=== PATIENT | male | born 1960 | race Caucasian/White ===

== ENCOUNTER → 2020-06-30 10:49 | Outpatient (BNVA) | payer OTHER, SELFPAY | PROVIDERS: Visit Provider Nurse Practitioner | DX: E11.65 Type 2 diabetes mellitus with hyperglycemia (principal); Z79.4 Long term (current) use of insulin; E55.9 Vitamin D deficiency, unspecified; F10.10 Alcohol abuse, uncomplicated | CPT/HCPCS: 80053; 80061; 81000; 82043; 82306; 82607; 83036; 83735; 84443; 85025 ==

== ENCOUNTER → 2020-10-04 08:23 | Outpatient (BNVA) | payer OTHER, SELFPAY | PROVIDERS: PCP Nurse Practitioner; Visit Provider Nurse Practitioner | DX: E11.65 Type 2 diabetes mellitus with hyperglycemia (principal); Z79.4 Long term (current) use of insulin; E78.2 Mixed hyperlipidemia | CPT/HCPCS: 80053; 80061; 83036; 85025 ==

== ENCOUNTER 2020-11-15 14:11 | Outpatient (CLI) | payer OTHER, SELFPAY ==
--- NOTE | 2020-11-15 14:15 | USCV_ITS ---
Terrence Mayfield Age: 59 Gender: M : 1960 Exam Date: 11/15/2020 14:55 Ordering Phys: John Rouse Technologist: Eduardo Chino [place]am Location[place] [facility] [place] [facility] [place] Indication: DM Risk Factors: Previous Vascular Surgery: RIGHT LEFT BP: 147.0 / 71.00 BP: 146.0/ 76.00 0 0 Waveform Velocity (cm/s) Velocity (cm/s) Waveform Triphasic 67.4 Iliac Prox 112.9 Triphasic Triphasic 83.2 Iliac Mid 119.8 Triphasic Monophasic 97.3 Iliac Distal 92.0 Triphasic Monophasic 107.8 RECRUITMENT SPECIALIST 54.5 Triphasic Monophasic 102.5 SFA Prox 74.9 Biphasic Monophasic 33.4 SFA Mid 40.4 Monophasic N/A SFA Dist Monophasic 32.6 Monophasic 30.3 POP 73.8 Monophasic Monophasic 48.6 RIB CUTTER 30.3 Monophasic Monophasic 19.2 DPA 54.4 Biphasic 0.5 JOHN FINDINGS Within the right lower extremity there is no flow within the distal sfa, but flow is seen posterior to collateral. Within the left lower extremity there is a fem-pop bypass graft. The little shell tribe artery does appear top have flow. Monophasic and continuous Doppler waveforms in the popliteal and infrapopliteal vessels on the right side. Moderate to heavy diffuse plaques in the left iliac, femoral and popliteal arteries. The dorsalis pedis and posterior tibial artery blood pressures were greater than 220 on the left side. CONCLUSIONS 1. Features of total occlusion of the distal superficial femoral artery on the right side with collateral filling of the infrapopliteal vessels. Moderate to heavy plaques in the iliac, femoral and popliteal arteries. Resting JOHN of 0.5 on the right side 2. Moderate to heavy diffuse heterogeneous plaques in the left iliac, femoral and popliteal arteries. These arteries along with the infrapopliteal vessels were found to be patent 3. Patent femoral-popliteal bypass graft on the left side. Supranormal resting JOHN on the left side Dr Preston Taylor MD [facility] (Electronically Signed) Final Date: 17 November 2020 11:12 S
--- NOTE | 2020-11-15 15:44 | ECG_ITS ---
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
[2020-11-15 15:50] LABS: Eosinophils # 0.1 10^3/uL (0.0-0.8); Eosinophils % 3.1 %; Hematocrit 35.4 % (42.0-52.0); Hemoglobin 11.3 g/dL (11.7-16.6); Lymphocytes # 0.9 10^3/uL (0.8-4.8); Lymphocytes % 21.9 %; Mean Corpuscular HGB Conc 31.9 g/dL (30.0-36.0); Mean Corpuscular Volume 103.5 fl (80-94); Mean Platelet Volume 8.9 fL (7.4-10.4); Monocytes # 0.5 10^3/uL (0.2-0.9); Monocytes % 11.9 %; Neutrophils % 61.9 %; Nucleated Red Blood Cells % 0 %; Platelet Count 179 10^3/cmm (130-400); Red Blood Count 3.42 10^6/uL (4.1-5.3); Red Cell Distribution Width 14.3 % (12.1-15.1); White Blood Count 4.2 10^3/uL (4.0-10.0)
[2020-11-15 16:52] LABS: Anion Gap 16.7 (5-19); Blood Urea Nitrogen 14 mg/dL (8-23); Calcium 8.9 mg/dL (8.5-10.5); Carbon Dioxide 28 mmol/L (22-29); Chloride 99 mmol/L (98-107); Glomerular Filtration Rate 98.6 mL/min (90-130); Glucose 242 mg/dL (65-115); Osmolality Calculated 298 mOsm/kg (285-295); Potassium 3.7 mmol/L (3.5-5.1); Sodium 140 mmol/L (136-145)
== END 2020-11-15 14:12 | disposition home or self-care (01) ==
PROVIDERS: PCP Nurse Practitioner; Visit Provider Nurse Practitioner
DX: E11.65 Type 2 diabetes mellitus with hyperglycemia (principal); Z79.4 Long term (current) use of insulin; I73.9 Peripheral vascular disease, unspecified; M79.2 Neuralgia and neuritis, unspecified; E78.2 Mixed hyperlipidemia; K21.9 Gastro-esophageal reflux disease without esophagitis; R94.31 Abnormal electrocardiogram [ECG] [EKG]
CPT/HCPCS: 80048; 85025; 93005; 93925

== ENCOUNTER 2021-01-03 15:24 | Outpatient (CLI) | payer OTHER, SELFPAY ==
--- NOTE | 2021-01-03 15:45 | USCV_ITS ---
Tran Terrence Age: 60 Gender: M : 1960 Exam Date: 01/03/2021 15:57 Ordering Phys: John Rouse Technologist: TO [place]am [place] [facility] [place] Indication: SYNCOPE AND COLLAPSE Risk Factors: Previous Vascular Surgery: Right Brachial BP: / Left Brachial BP: / Right Left Velocity (cm/s) Spectral Plaque Velocity (cm/s) Spectral Plaque Syst/Diast Broadening Syst/Diast Broadening 111.40/22.10 Prox CCA 109.20/ 19.80 88.10/ 17.10 Mid CCA 102.50/ 26.50 67.70/ 16.40 Distal CCA 97.00 / 29.80 63.10/ 14.50 Prox ICA 61.90 / 23.00 71.60/ 19.70 Mid ICA 77.70 / 28.80 79.50/ 29.60 Distal ICA 86.90 / 30.90 197.30 ECA 170.90 0.81 ICA/CCA 0.76 Antegrade Vertebral Antegrade 53.20/ 7.90 cm/s 47.30/ 13.80 cm/s Tri Subclavian Tri 113.6 103.4 0 0 CONCLUSIONS Right ICA stenosis <50%. Moderate atheromatous plaque right carotid bulb/ICA. Left ICA stenosis <50%. Moderate atheromatous plaque left carotid bulb/ICA. Normal antegrade Doppler flow noted in the right vertebral artery. Normal antegrade Doppler flow noted in the left vertebral artery. Cheikh Saenz MD (Electronically Signed) Final Date: 04 January 2021 10:50 S
== END 2021-01-03 15:25 | disposition home or self-care (01) ==
LOC: US 15:27
PROVIDERS: PCP Nurse Practitioner; Visit Provider Nurse Practitioner
DX: R55 Syncope and collapse (principal); I65.23 Occlusion and stenosis of bilateral carotid arteries
CPT/HCPCS: 93880

== ENCOUNTER → 2021-01-23 09:49 | Outpatient (BNVA) | payer OTHER, SELFPAY | PROVIDERS: PCP Nurse Practitioner; Visit Provider Nurse Practitioner | DX: E55.9 Vitamin D deficiency, unspecified (principal); E11.65 Type 2 diabetes mellitus with hyperglycemia; Z79.4 Long term (current) use of insulin; M79.2 Neuralgia and neuritis, unspecified; E78.2 Mixed hyperlipidemia | CPT/HCPCS: 80053; 80061; 81000; 82306; 83036 ==

== ENCOUNTER 2021-02-22 13:38 | Outpatient (CLI) | payer OTHER, SELFPAY ==
--- NOTE | 2021-02-22 14:00 | CT_ITS ---
WS: [id number] CTA ABDOMINAL AORTA WITH RUNOFF TECHNIQUE: Contrast enhanced CTA of the abdominal aorta with bilateral lower extremity runoff. Multip lanar reformatted images were obtained. MIP reformats were also reviewed. CLINICAL INFORMATION: M79.606 - Pain in leg, unspecified COMPARISON: None. DLP: 1354.[address] scans at [facility] use at least one of these dose optimization techniques: automated e xposure control; mA and/or kV adjustment per patient size (includes targeted exams where dose is matc hed to clinical indication); or iterative reconstruction. FINDINGS: Normal caliber abdominal aorta. Aortic calcification. Celiac and SMA are patent. Mild stenosis at the SMA origin. Proximal renal arteries are patent with mild calcification at the os tia. Normal HAYDEN. No abdominal aortic aneurysm. RIGHT: Calcified common iliac arteries bilaterally. Right common iliac artery is patent. Dense calcif ication internal iliac arteries bilaterally. External iliac artery is patent. Common femoral artery i s patent with moderate calcification. Moderate approximately 60% stenosis at the SFA origin which rem ains patent with dense calcification. Moderate to severe segmental stenosis involving the superficial femoral artery in the proximal and mid thigh. SFA is patent to the adductor hiatus. Severe stenosis with dense calcifications and segmental occlusion involving the popliteal artery. Reconstitution of t he distal popliteal artery [id number] which remains patent to the trifurcation. Three-vessel runo ff to the ankle. Calcified segmental stenosis involving the peroneal artery which remains patent. LEFT: Densely calcified common iliac artery which is patent. Densely calcified internal iliac artery. External iliac artery is patent. Short segment dissection involving the distal external iliac. Femor opopliteal bypass which is patent. Popliteal artery distal to the bypass is patent. Popliteal artery is patent to the trifurcation with densely calcified atretic three-vessel runoff to the ankle. Segmen teresa flow in the calf arteries due to dense calcification Lung bases are well aerated. Diffuse fatty infiltration of the liver. Mild hepatomegaly. Normal dorothea l vein and splenic vein. Normal spleen. Normal GE junction. Food products in the stomach with distent ion. Fatty atrophy of the pancreas. Adrenal glands are normal. Normal renal parenchymal enhancement. No hydronephrosis. Normal caliber abdominal aorta. Normal appendix in the right lower quadrant. No ab dominal or pelvic lymphadenopathy. CT/CT angio abd aorta runof [id number] IMPRESSION: 1. RIGHT: Segmental moderate to severe stenosis involving the superficial femo ral artery. Segmental occlusion of the popliteal artery which reconstitutes abo ve the knee. Somewhat diminutive but patent three-vessel runoff to the ankle. S egmental stenosis in the peroneal artery. 2. LEFT: Femoropopliteal bypass which is patent. Popliteal artery distal to th e bypass is patent. Popliteal artery is patent to the trifurcation with densely calcified atretic three-vessel runoff to the ankle. Segmental flow in the calf arteries due to dense calcification.
[2021-02-22] MEDS: iohexol 350 mg/mL 100 mL Btl IV (15:00)
== END 2021-02-22 13:39 | disposition home or self-care (01) ==
PROVIDERS: PCP Nurse Practitioner; Visit Provider Thoracic Surgery (Cardiothoracic Vascular Surgery)
DX: M79.606 Pain in leg, unspecified (principal); I70.8 Atherosclerosis of other arteries
CPT/HCPCS: 75635; Q9967

== ENCOUNTER → 2021-04-09 08:56 | Outpatient (BNVA) | payer OTHER, SELFPAY | PROVIDERS: PCP Nurse Practitioner; Visit Provider Internal Medicine Cardiovascular Disease | DX: Z20.822 Contact with and (suspected) exposure to COVID-19 (principal); I73.9 Peripheral vascular disease, unspecified | CPT/HCPCS: 80048; 85025; 85610; 87635 ==

== ENCOUNTER 2021-04-12 07:29 | Outpatient (CLI) | payer OTHER, SELFPAY ==
[2021-04-12 08:20] VITALS: BP 161/97; PULSE 90; RESP 16; TEMP 36.8; O2SAT 100; BMI 25.3
[2021-04-12] MEDS: diphenhydrAMINE 50 mg Capsule PO (08:25)
--- NOTE | 2021-04-12 10:05 | P.PCN_ITS ---
Other Information: 60-year-old male referred to me by Dr. Dean for peripheral angiogram with indication of lifestyle limiting claudication in the right leg. This morning patient and his was seen by me after examination I explained all risk benefit and alternative for the procedure. Patient and his was not willing to accept any risk there were told there is a 2 to 3% risk of vascular injury limb loss bleeding 6% risk of hematoma infection and less than 1% chance of from any complication and excessive bleeding. Patient and his wishes not to proceed with peripheral angiogram. Patient and his has been told in case of worsening of pain or pain at rest or any infection of the foot he should immediately contact us and primary care. Due to patient not willing to give us consent and permission we have not done this procedure. Coding Level of Care Code Acute Logistics Associate for Mahesh Rutherford
--- NOTE | 2021-04-12 10:11 | PC.NURSE ---
consent refused. case cancelled.
== END 2021-04-12 07:30 | disposition home or self-care (01) ==
PROVIDERS: PCP Nurse Practitioner; Visit Provider Internal Medicine Cardiovascular Disease
DX: I73.9 Peripheral vascular disease, unspecified (principal); Z53.8 Procedure and treatment not carried out for other reasons
CPT/HCPCS: J1644; J2250; J3010; J3490; J7030; Q0163

== ENCOUNTER → 2021-05-01 08:03 | Outpatient (BNVA) | payer OTHER, SELFPAY | PROVIDERS: PCP Nurse Practitioner; Visit Provider Nurse Practitioner | DX: E11.65 Type 2 diabetes mellitus with hyperglycemia (principal); Z79.4 Long term (current) use of insulin | CPT/HCPCS: 81000; 83036 ==

== ENCOUNTER → 2021-07-19 16:51 | Outpatient (BNVA) | payer OTHER, MEDICARE, SELFPAY | PROVIDERS: PCP Nurse Practitioner; Visit Provider Nurse Practitioner | DX: E78.2 Mixed hyperlipidemia (principal); E11.65 Type 2 diabetes mellitus with hyperglycemia; Z79.4 Long term (current) use of insulin; M79.2 Neuralgia and neuritis, unspecified | CPT/HCPCS: 81000 ==

== ENCOUNTER → 2021-08-22 10:09 | Outpatient (BNVA) | payer OTHER, MEDICARE, SELFPAY | PROVIDERS: PCP Nurse Practitioner; Visit Provider Nurse Practitioner | DX: R07.81 Pleurodynia (principal) | CPT/HCPCS: 71101 ==

== ENCOUNTER → 2021-08-31 10:38 | Outpatient (BNVA) | payer OTHER, MEDICARE, SELFPAY | PROVIDERS: PCP Nurse Practitioner; Visit Provider Nurse Practitioner Family | DX: Z20.822 Contact with and (suspected) exposure to COVID-19 (principal) | CPT/HCPCS: 87635 ==

== ENCOUNTER → 2021-10-12 08:36 | Outpatient (BNVA) | payer OTHER, MEDICARE, SELFPAY | PROVIDERS: PCP Nurse Practitioner; Visit Provider Nurse Practitioner | DX: E11.65 Type 2 diabetes mellitus with hyperglycemia (principal); Z79.4 Long term (current) use of insulin | CPT/HCPCS: 80053; 80061; 83036; 85025 ==

== ENCOUNTER → 2021-10-15 14:58 | Outpatient (BNVA) | payer OTHER, MEDICARE, SELFPAY | PROVIDERS: PCP Nurse Practitioner; Visit Provider Nurse Practitioner | DX: E11.65 Type 2 diabetes mellitus with hyperglycemia (principal); E78.2 Mixed hyperlipidemia; M79.2 Neuralgia and neuritis, unspecified; Z12.11 Encounter for screening for malignant neoplasm of colon; D64.9 Anemia, unspecified; I73.9 Peripheral vascular disease, unspecified; F10.10 Alcohol abuse, uncomplicated | CPT/HCPCS: 82607; 83550; 84443 ==

== ENCOUNTER → 2022-01-07 08:13 | Outpatient (BNVA) | payer OTHER, MEDICARE, SELFPAY | PROVIDERS: PCP Nurse Practitioner; Visit Provider Nurse Practitioner | DX: E11.65 Type 2 diabetes mellitus with hyperglycemia (principal) | CPT/HCPCS: 80053; 81000; 83036; 85025 ==

== ENCOUNTER → 2022-04-29 15:10 | Outpatient (BNVA) | payer OTHER, MEDICARE, SELFPAY | PROVIDERS: PCP Nurse Practitioner; Visit Provider Nurse Practitioner | DX: E11.65 Type 2 diabetes mellitus with hyperglycemia (principal); Z79.4 Long term (current) use of insulin; E78.2 Mixed hyperlipidemia; M79.2 Neuralgia and neuritis, unspecified; E55.9 Vitamin D deficiency, unspecified | CPT/HCPCS: 80053; 81000; 82306; 83036 ==

== ENCOUNTER 2022-05-14 13:18 | Outpatient (CLI) | payer OTHER, MEDICARE, SELFPAY ==
--- NOTE | 2022-05-14 13:00 | CTR_ITS ---
PROCEDURE INFORMATION: Exam: CTA Abdominal Aorta and Bilateral Lower Extremities (Run-off) With Contrast Exam date and time: 05/14/2022 1:34 PM Age: 61 years old Clinical indication: Pain and abnormal findings; Abnormal lab test; Other: Abnormal leeanne's; Other: Leg pain; Prior surgery; Surgery type: --fem pop, left toe amputee TECHNIQUE: Imaging protocol: Computed tomographic angiography of the of the abdominal aorta, pelvis and bilateral lower extremities with contrast. 3D rendering (Not supervised by radiologist): MIP and/or 3D reconstructed images were created by the technologist. Radiation optimization: All CT scans at this facility use at least one of these dose optimization techniques: automated exposure control; mA and/or kV adjustment per patient size (includes targeted exams where dose is matched to clinical indication); or iterative reconstruction. Contrast material: OMNI 350; Contrast volume: 95 ml; Contrast route: INTRAVENOUS (IV); REPORTING DATA: Count of CT and Cardiac NM exams in prior 12 months: This patient has received 0 known CTs and 0 known cardiac nuclear medicine studies in the 12 months prior to the current study. COMPARISON: CT angio abd aorta runof [id number] 02/22/2021 2:33 PM RADIATION DOSE METRICS: Total DLP (mGy-cm): 454.69 FINDINGS: Aorta: Diffuse plaques of abdominal aorta. Negative for aneurysm. Negative for dissection. Celiac trunk and mesenteric arteries: No occlusion or significant stenosis of celiac artery origin. Large calcified plaque of SMA origin with moderate severity stenosis without occlusion. HAYDEN patent with no significant stenosis. Renal arteries: No occlusion. Calcified plaques at the origins with mild severity stenosis bilaterally. Right iliac arteries: Calcified plaques throughout the right common iliac artery. Mild stenosis. Negative for dissection. No significant right external iliac artery plaque or stenosis. Right femoral/popliteal arteries: Large mostly calcified plaque volume right common femoral artery with moderate to severe stenosis. Large calcified plaque right deep femoral artery origin with severe stenosis. Moderate to severe stenosis right superficial femoral artery origin secondary to calcified plaque. Diffuse bulky large calcified plaques throughout the right superficial femoral artery with variable severity of stenosis ranging from mild to severe. There may be short segment areas of occlusion throughout the mid and distal aspects of the right superficial femoral artery. Diffuse calcified plaques throughout the right popliteal artery with variable severity of stenosis without occlusion. Right infrapopliteal arteries: Extensive calcified plaques and diminutive size limits evaluation. Beaded stenosis diffusely involving anterior tibial, posterior tibial and peroneal arteries. Segmental regions of occlusion cannot be excluded. Left iliac arteries: Diffuse calcified plaques left common iliac artery with mild severity stenosis without dissection. Scattered calcified plaques of left external iliac artery with mild stenosis. Negative for dissection. Left femoral/popliteal arteries: Postsurgical endarterectomy changes of the left common femoral artery with no significant stenosis. Left deep femoral artery origin is patent with no significant stenosis. Severe occlusive disease throughout the left superficial femoral artery. Left popliteal artery is patent with diffuse calcified plaques and mild to moderate severity stenosis with possibly severe stenosis distally. Left infrapopliteal arteries: Extensive calcified plaques and diminutive size limits evaluation. Beaded stenosis diffusely involving anterior tibial, posterior tibial and peroneal arteries. Segmental regions of occlusion cannot be excluded. Other arteries: Left femoropopliteal arterial bypass graft is patent diffusely. Severe stenosis at the origin of the graft is noted. No significant stenosis of the distal anastomosis. Liver: No mass. Gallbladder and bile ducts: Unremarkable. No calcified stones. No ductal dilation. Pancreas: Unremarkable. No mass. No ductal dilation. Spleen: Normal. No splenomegaly. Adrenal glands: Normal. No mass. Kidneys and ureters: Normal. No mass. Stomach and bowel: Unremarkable. No significant finding. Appendix: No evidence of appendicitis. Urinary bladder: Unremarkable. No mass. Reproductive: Unremarkable as visualized. Intraperitoneal space: Unremarkable. No free air. No significant fluid collection. Lymph nodes: No lymphadenopathy. Bones/joints: No acute fracture. No dislocation. Fourth toe phalangeal amputations on the left. Bilateral L5 pars defects without spondylolisthesis. Soft tissues: Unremarkable. CT/CT angio abd aorta runof [id number] IMPRESSION: 1. Substantial diffuse bilateral lower extremity peripheral arterial occlusive disease femoropopliteal arteries and tibioperoneal arterial runoff as described in the findings. Suboptimal evaluation of the tibioperoneal arterial runoff secondary to diminutive size. 2. Severe stenosis of the left femoral arterial bypass graft proximal anastomosis.
[2022-05-14] MEDS: iohexol 350 mg/mL 500 mL Btl (per mL) IV (13:53)
== END 2022-05-14 13:19 | disposition home or self-care (01) ==
LOC: RAD 13:22
PROVIDERS: PCP Nurse Practitioner; Visit Provider Thoracic Surgery (Cardiothoracic Vascular Surgery)
DX: I73.9 Peripheral vascular disease, unspecified (principal); E11.42 Type 2 diabetes mellitus with diabetic polyneuropathy; M21.622 Bunionette of left foot; M21.621 Bunionette of right foot; M20.41 Other hammer toe(s) (acquired), right foot; M20.42 Other hammer toe(s) (acquired), left foot; L60.3 Nail dystrophy; Z79.4 Long term (current) use of insulin
CPT/HCPCS: 11721; 75635; 93923; 99204; Q9967

== ENCOUNTER → 2022-07-10 13:57 | Outpatient (BNVA) | payer OTHER, MEDICARE, SELFPAY | PROVIDERS: PCP Nurse Practitioner; Visit Provider Internal Medicine | DX: R07.9 Chest pain, unspecified (principal) | CPT/HCPCS: 93005; 99204 ==

== ENCOUNTER → 2022-07-22 14:42 | Outpatient (BNVA) | payer OTHER, MEDICARE, SELFPAY | PROVIDERS: PCP Nurse Practitioner; Visit Provider Nurse Practitioner | DX: E78.2 Mixed hyperlipidemia (principal); E11.65 Type 2 diabetes mellitus with hyperglycemia; M79.2 Neuralgia and neuritis, unspecified; Z79.4 Long term (current) use of insulin | CPT/HCPCS: 80053; 80061; 81000; 83036 ==

== ENCOUNTER → 2022-08-06 10:43 | Outpatient (BNVA) | payer OTHER, MEDICARE, SELFPAY | PROVIDERS: PCP Nurse Practitioner; Visit Provider Podiatrist Foot & Ankle Surgery | DX: I73.9 Peripheral vascular disease, unspecified (principal); L60.3 Nail dystrophy; E11.42 Type 2 diabetes mellitus with diabetic polyneuropathy; M20.42 Other hammer toe(s) (acquired), left foot; M20.41 Other hammer toe(s) (acquired), right foot; M21.621 Bunionette of right foot; M21.622 Bunionette of left foot; Z79.4 Long term (current) use of insulin | CPT/HCPCS: 99214 ==

== ENCOUNTER → 2022-10-15 11:06 | Outpatient (BNVA) | payer OTHER, MEDICARE, SELFPAY | PROVIDERS: PCP Nurse Practitioner; Visit Provider Nurse Practitioner | DX: E11.65 Type 2 diabetes mellitus with hyperglycemia (principal) | CPT/HCPCS: 80053; 81000; 83036 ==

== ENCOUNTER 2022-11-02 20:42 | Emergency (ER) | payer OTHER, MEDICARE, SELFPAY ==
--- NOTE | 2022-11-02 20:46 | CTR_ITS ---
PROCEDURE INFORMATION: Exam: CT Cervical Spine Without Contrast Exam date and time: 11/02/2022 9:27 PM Age: 61 years old Clinical indication: Injury or trauma; Blunt trauma; Patient HX: Fall at home. TECHNIQUE: Imaging protocol: Computed tomography of the cervical spine without contrast. Radiation optimization: All CT scans at this facility use at least one of these dose optimization techniques: automated exposure control; mA and/or kV adjustment per patient size (includes targeted exams where dose is matched to clinical indication); or iterative reconstruction. REPORTING DATA: Count of CT and Cardiac NM exams in prior 12 months: This patient has received [address] and 0 known cardiac nuclear medicine studies in the 12 months prior to the current study. COMPARISON: CT head wo con* [id number] 11/02/2022 9:24 PM RADIATION DOSE METRICS: Total DLP (mGy-cm): 141.47 FINDINGS: Bones/joints: Near anatomic alignment. No acute cervical spinal fracture. There is minimal height loss anteriorly and superiorly in the T1 vertebrae which appears chronic. Multilevel degenerative changes are present. Lungs: Lung apices are normal. Soft tissues: Unremarkable. CT/CT cervical spin wo con* [id number] IMPRESSION: 1. No acute cervical spinal fracture. 2. Minimal anterior/superior endplate height loss of T1 is favored to be chronic. Correlate with point tenderness.
--- NOTE | 2022-11-02 20:46 | CTR_ITS ---
PROCEDURE INFORMATION: Exam: CT Head Without Contrast Exam date and time: 11/02/2022 9:24 PM Age: 61 years old Clinical indication: Injury or trauma; Blunt trauma (contusions or hematomas) and laceration; Without residual foreign body; Scalp; Patient HX: Fall at home. Laceration to RT side of vertex. TECHNIQUE: Imaging protocol: Computed tomography of the head without contrast. Radiation optimization: All CT scans at this facility use at least one of these dose optimization techniques: automated exposure control; mA and/or kV adjustment per patient size (includes targeted exams where dose is matched to clinical indication); or iterative reconstruction. REPORTING DATA: Count of CT and Cardiac NM exams in prior 12 months: This patient has received [address] and 0 known cardiac nuclear medicine studies in the 12 months prior to the current study. COMPARISON: No relevant prior studies available. RADIATION DOSE METRICS: Total DLP (mGy-cm): 292 FINDINGS: Brain: No acute infarct. No hemorrhage. Unremarkable white matter for age. No mass effect. Moderate disproportionate atrophy is seen in the cerebellum bilaterally. Cerebral ventricles: No ventriculomegaly. Paranasal sinuses: No significant inflammation. No fluid levels. Mastoid air cells: Visualized mastoid air cells are well aerated. Bones/joints: There is an old fracture of the left lamina papyracea with fat extending into the defect. Soft tissues: There is a small laceration in the right parietal scalp near the vertex. CT/CT head wo con* [id number] IMPRESSION: No acute intracranial abnormality.
[2022-11-02 20:47] VITALS: BP 146/82; PULSE 103; RESP 18; TEMP 37.1; O2SAT 100; BMI 22.7
--- NOTE | 2022-11-02 20:47 | W.ED.FALL ---
HPI - Fall General: Chief Complaint: Fall Stated Complaint: Fall/ ETOH Time Seen by Provider: 11/02/22 20:43 Source: patient and EMS Mode of arrival: EMS Limitations: no limitations History of Present Illness: 61-year-old male who is intoxicated slipped and fell in his house hit his head he does have a lack to posterior head unknown if he had loss of consciousness he denies any pain elsewhere besides a headache. Denies any extremity pain. Associated symptoms-after fall: Reports headache(s); Denies abdominal pain, chest pain or neck pain Review of Systems Const: Denies: fever(s) or chills Eyes: Denies: blurry vision or eye discomfort ENMT: Denies: throat pain or dental pain Card: Denies: chest pain Resp: Denies: dyspnea GI: Denies: abdominal pain, nausea, vomiting or diarrhea Musc: Denies: neck pain or back pain Skin/Breast: Denies: rash Neuro: Reports: headache(s) [facility] ED PFSH: Medical History Alcohol abuse, daily use Johan Abraham's Hyperlipidemia, mixed Mild acid reflux Neuropathic pain PAD (peripheral artery disease) Use of cane as ambulatory aid Surgical History History of amputation Left 4th toe History of femoral angiogram History of hand fracture Right 5th finger pin History of tonsillectomy age 6 Family History Other Diabetes Denies family history of Dementia Chronic kidney disease (CKD) Anesthesia complication Bleeding disorder Lung disease Cancer Hypertension Stroke Social History Smoking and tobacco status: former smoker Second hand smoke exposure: No Smoking risk assessment/counseling performed?: No Alcohol intake: current Alcohol intake frequency: 0-2 Drinks per Day Alcohol type: hard liquor Desire information about alcohol rehabilitation?: No Counseling given: No Substance/Drug Use: unknown Desire information about substance/drug rehabilitation?: No Counseling given: No Adopted: No Caregiver/support person: No Lives independently: Yes Household members: spouse Housing: House Marital status: Number of children: 0 service: Yes branch: [employer] Current occupational status: retired Pets and animals: Yes Pets & animals: cat(s) Do you think of yourself as: Straight/Heterosexual Current gender identity: Male Physical Exam Const: COMMON NORMALS: no acute distress, patient oriented x3 and healthy appearing GENERAL APPEARANCE: appears older than stated age HENMT: COMMON NORMALS: normocephalic; head/scalp not atraumatic (3cm laceration to posterior scalp) HEAD & SCALP: normocephalic; not atraumatic (3cm laceration to posterior scalp) Eye: COMMON NORMALS: Equal, round and reactive pupils present and EOMs intact bilaterally PUPIL: Yes Equal, round and reactive pupils present Neck/C-Spine: COMMON NORMALS: full ROM and supple Chest: COMMONS NORMALS: normal inspection of the chest and normal palpation of entire chest wall Resp: COMMON NORMALS: normal respiratory effort, No retractions, No use of accessory muscles and clear to auscultation bilaterally AUSCULTATION: clear to auscultation bilaterally Cardio: COMMON NORMALS: regular rate, regular rhythm and No murmurs present (Cardio) RATE: regular rate RHYTHM: regular rhythm GI: COMMON NORMALS: Normal to inspection, nondistended, normoactive bowel sounds present, Soft to palpation, non-tender and no masses PALPATION: Yes Soft to palpation Extremity: COMMON NORMALS: normal to inspection and full ROM Neuro: COMMON NORMALS: patient oriented x3, moves all extremities and no focal motor deficits Psych: COMMON NORMALS: mental status grossly normal, Normal thought process present and cooperative THOUGHT PROCESS: Normal thought process present Skin: COMMON NORMALS: no rashes or lesions noted and no wounds GENERAL SKIN EXAM: no rashes or lesions noted Procedures Laceration Laceration 1: Site: scalp Size (cm): 6 Description: linear Depth: simple, single layer Local Anesthetic: lidocaine 1% Amount of anesthesia used (mL): 6 Pre-repair: wound explored and irrigated extensively Skin layer closed with: other (lidia) Number of sutures: 4 Course Vital Signs: Vital signs: Vital Signs Temperature 98.7 F 11/02/22 20:47 Pulse Rate 103 H 11/02/22 20:47 Respiratory Rate 18 11/02/22 20:47 Blood Pressure 146/82 11/02/22 20:47 Pulse Oximetry 100 11/02/22 20:47 Oxygen Delivery Me thod Room Air 11/02/22 20:47 MDM - Fall Medical Decision Making Patient presents here with a head laceration from a fall head CT and C-spine CT are both negative did repair the laceration with lidia he is return in 1 week for staple removal he is stable for discharge at this time no other injuries noted Lab Data Radiology Impressions Cervical Spine CT 11/02/22 20:46 IMPRESSION: 1. No acute cervical spinal fracture. 2. Minimal anterior/superior endplate height loss of T1 is favored to be chronic. Correlate with point tenderness. Head CT 11/02/22 20:46 IMPRESSION: No acute intracranial abnormality. Discharge Plan Discharge Patient Disposition: Home Clinical Impression: Head injury, Laceration of head Condition: Stable Prescriptions: No Action magnesium oxide 250 mg magnesium tablet 250 mg PO DAILY thiamine HCl (vitamin B1) 100 mg tablet 100 mg PO DAILY ascorbate calcium (vitamin C) 500 mg tablet 500 mg PO DAILY cholecalciferol (vitamin D3) 10 mcg (400 unit) capsule 10 mcg PO DAILY omega 9-aaq-ydy-fish oil [Fish Oil] 300-1,000 mg capsule 1 cap PO DAILY krill oil 500 mg capsule PO atorvastatin 20 mg tablet 20 mg PO DAILY Qty: 90 0RF Jardiance 25 mg tablet 25 mg PO QAM Qty: 90 0RF gabapentin 300 mg capsule 300 mg PO BID Qty: 180 0RF Lantus Solostar U-100 Insulin 100 unit/mL (3 mL) insulin pen See Rx Instructions SUBCUT .COMPLEX Qty: 90 0RF Hold Instructions: Glucose improved Rx Instructions: up to 100U subcutaneously daily; Ozempic 1 mg/dose (4 mg/3 mL) pen injector 1 mg SUBCUT .weekly Qty: 9 0RF omeprazole 20 mg capsule,delayed release(DR/EC) 20 mg PO .Daily OTC Vitamin B-12 PO ferrous sulfate 325 mg (65 mg iron) tablet 325 mg PO DAILY cilostazol 50 mg tablet 50 mg PO BID Qty: 180 3RF (DME) pen needle, diabetic 33 gauge x 5/32 needle See Rx Instructions .ROUTE .MEDSUPPLY Qty: 300 5RF Rx Instructions: 2 times day Discharge Orders: Discharge ED (Routine); Ordered 11/02/22 Ordered By: Marcus Parker Referrals: John Rouse, [employer] SUPERVISOR-[employer] [Primary Care Provider] - Discharge Diet: Advance as tolerated Discharge Activity: Resume usual activity Patient Instructions: Head Laceration (ED) Activity Restrictions/Additional Instructions: staple removal in 7 days Coding Level of Care Code ED Office System Analyst for Mahesh Rutherford
[2022-11-02 23:35] VITALS: BP 143/91; PULSE 103; RESP 18; O2SAT 97
--- NOTE | 2022-11-02 23:48 | PC.NURSE ---
Pt was escorted to waiting room with all paperwork and belongings. Hina was called and informed that patient was without ride and would be in waiting room until someone would be able to pickup the patient.
== END 2022-11-02 23:49 | disposition home or self-care (01) ==
PROVIDERS: Emergency Provider Emergency Medicine; PCP Nurse Practitioner
DX: S01.01XA Laceration without foreign body of scalp, initial encounter (principal); S09.90XA Unspecified injury of head, initial encounter; Z79.4 Long term (current) use of insulin; Z87.891 Personal history of nicotine dependence; E78.2 Mixed hyperlipidemia; W01.0XXA Fall on same level from slipping, tripping and stumbling without subsequent striking against object, initial encounter
CPT/HCPCS: 12002; 70450; 72125; 99284

== ENCOUNTER → 2022-11-26 09:56 | Outpatient (BNVA) | payer OTHER, MEDICARE, SELFPAY | PROVIDERS: PCP Nurse Practitioner; Visit Provider Nurse Practitioner Family | DX: I73.9 Peripheral vascular disease, unspecified (principal); Z87.891 Personal history of nicotine dependence; E11.8 Type 2 diabetes mellitus with unspecified complications; L60.3 Nail dystrophy; M21.622 Bunionette of left foot; M21.621 Bunionette of right foot; M20.41 Other hammer toe(s) (acquired), right foot; M20.42 Other hammer toe(s) (acquired), left foot; E11.42 Type 2 diabetes mellitus with diabetic polyneuropathy; Z79.4 Long term (current) use of insulin | CPT/HCPCS: 99213 ==

== ENCOUNTER → 2023-01-07 11:46 | Outpatient (BNVA) | payer OTHER, MEDICARE, SELFPAY | PROVIDERS: PCP Nurse Practitioner; Visit Provider Nurse Practitioner | DX: M79.2 Neuralgia and neuritis, unspecified (principal); E78.2 Mixed hyperlipidemia; E11.65 Type 2 diabetes mellitus with hyperglycemia; Z23 Encounter for immunization; K21.9 Gastro-esophageal reflux disease without esophagitis; F10.10 Alcohol abuse, uncomplicated; Z79.4 Long term (current) use of insulin | CPT/HCPCS: 80053; 81000; 83036; 85025 ==

== ENCOUNTER 2023-02-03 09:32 | Emergency (ER) | payer OTHER, MEDICARE, SELFPAY ==
[2023-02-03 09:55] VITALS: BP 106/71; PULSE 112; RESP 14; TEMP 36.9; O2SAT 99; BMI 22.7
[2023-02-03 11:55] LABS: Basophils % 0.4 %; Eosinophils # 0.1 10^3/uL (0.0-0.8); Hematocrit 46.7 % (37-53); Lymphocytes # 0.9 10^3/uL (0.8-4.8); Lymphocytes % 16.8 %; Mean Corpuscular Hemoglobin 31.6 pg (27-33); Mean Corpuscular Volume 95.9 fl (82-101); Mean Platelet Volume 9.3 fL (7.4-10.4); Monocytes # 0.6 10^3/uL (0.2-0.9); Monocytes % 11.8 %; Neutrophils # 3.67 10^3/uL (1.8-7.7); Neutrophils % 69.8 %; Nucleated Red Blood Cells % 0 %; Platelet Count 162 10^3/cmm (157-399); Red Blood Count 4.87 10^6/uL (3.85-5.65); Red Cell Distribution Width 11.4 % (12.1-15.1); White Blood Count 5.25 10^3/uL (3.29-11.43)
[2023-02-03 12:07] LABS: Alanine Aminotransferase 51 U/L (0-41); Albumin Level 4.9 g/dL (3.5-5.2); Alkaline Phosphatase 72 U/L (40-130); Aspartate Amino Transferase 56 U/L (0-40); Blood Urea Nitrogen 19 mg/dL (8-23); Calcium 10.1 mg/dL (8.5-10.5); Carbon Dioxide 30 mmol/L (22-29); Chloride 94 mmol/L (98-107); Globulin 3.6 g/dL (1.3-4.6); Glomerular Filtration Rate 85.2 mL/min (90-130); Glucose 84 mg/dL (65-115); Lipase 12 U/L (13-60); Osmolality Calculated 293 mOsm/kg (285-295); Sodium 141 mmol/L (136-145); Total Bilirubin 0.5 mg/dL (0.15-1.2); Total Protein 8.5 g/dL (6.6-8.7)
[2023-02-03 12:08] LABS: Alcohol Level < 10 mg/dL (0-10)
--- NOTE | 2023-02-03 13:00 | CT_ITS ---
WS: [id number] CT HEAD NONCONTRAST HISTORY: fall TECHNIQUE: Contiguous axial imaging performed through the brain in 2.5 mm imaging. Bone and soft tiss ue windows. Sagittal and coronal reformats reviewed. All CT scans at [facility] use at least one of these dose optimization techniques: automated exposure control; mA and/or kV adjustment per pa tient size (includes targeted exams where dose is matched to clinical indication); or iterative recon struction. DLP: 1108.10 mGy.cm COMPARISON: 11/02/2022 No acute intracranial hemorrhage, midline shift or mass effect. Disproportionate atrophy of the cerebellum. This was described on 11/02/2022 also. Marked bilateral cer ebellar atrophy. Mild atrophy of the kyle. Mild cerebral atrophy with small vessel ischemic disease. Ventricles: Normal size with no hydrocephalus. Paranasal sinuses: As visualized are clear. Mastoid air cells: Well pneumatized. Calvarium and scalp: Skull is intact with no soft tissue edema or swelling. IMPRESSION: 1. No acute intracranial hemorrhage or edema. 2. Moderate bilateral cerebellar atrophy. Out of proportion to the cerebral atrophy. Similar to the s tudy of 11/02/2022. Numerous possible etiologies. This may be related to alcohol abuse, Dilantin use, a utoimmune encephalitis, Alzheimer's disease or olivopontocerebellar degeneration. This is not acute. 3. Mild cerebral atrophy and small vessel ischemic disease.
[2023-02-03 13:04] VITALS: BP 145/98; PULSE 103; RESP 14; O2SAT 96
[2023-02-03] MEDS: multivitamin therapeutic Tablet 1 TAB PO (13:12)
[2023-02-03] MEDS: ondansetron 2 mg/ML SDV 2 mL 4 MG IVP (13:12)
[2023-02-03] MEDS: sodium chloride 0.9% 1,000 ML 999 ML IV (13:13)
--- NOTE | 2023-02-03 13:20 | ED_ITS ---
HPI - Nausea/Vomiting/Diarrhea 2 General: Chief complaint: Nausea/Vomiting/Diarrhea Stated complaint: vomiting Time Seen by Provider: 02/03/23 12:30 Source: patient Mode of arrival: ambulatory Limitations: no limitations History of Present Illness: 62-year-old male has a history of chroni c alcoholism states he has had vomiting over the last 4 days. He states he had multiple episodes states that he feels dehydrated he also has had multiple falls last one being yesterday he does have a skin tear to his left forearm he is unsure if he is hit his head. He is well- appearing here with normal vitals he denies any abdominal pain. Associated nausea: Yes Associated symtoms: Reports nausea; Denies chest pain, dysuria or headache(s) Review of Systems 2 Const: Denies: fever(s), chills, body aches or change in appetite ENMT: Denies: throat pain or dental pain Card: Denies: chest pain Resp: Denies: dyspnea GI: Reports: nausea and vomiting; Denies: abdominal pain or diarrhea : Denies: dysuria Musc: Denies: neck pain or back pain Skin/Breast: Denies: rash Neuro: Denies: headache(s) PFSH ED 2 PFSH: Medical History (Updated 02/03/23 @ 14:00 by Marcus Parker MD) PAD (peripheral artery disease) Mild acid reflux Neuropathic pain Hyperlipidemia, mixed Alcohol abuse, daily use Johan Rosario's Use of cane as ambulatory aid Surgical History S/P femoral-popliteal bypass surgery History of colonoscopy May 2022 negative History of tonsillectomy age 6 History of hand fracture Right 5th finger pin History of femoral angiogram History of amputation Left 4th toe Family History Other Diabetes Denies family history of Dementia Chronic kidney disease (CKD) Anesthesia complication Bleeding disorder Lung disease Cancer Hypertension Stroke Social History Smoking and tobacco/nicotine status: former use of tobacco/nicotine Second hand smoke exposure: No Alcohol intake: current Alcohol intake frequency: 0-2 Drinks per Day Alcohol type: hard liquor Substance/Drug Use: unknown Adopted: No Caregiver/support person: No Lives independently: Yes Household members: spouse Housing: House Marital status: Number of children: 0 service: Yes branch: [employer] Current occupational status: retired Pets and animals: Yes Pets & animals: cat(s) Do you think of yourself as: Straight/Heterosexual Current gender identity: Male Physical Exam 2 Const: COMMON NORMALS: no acute distress, patient oriented x3 and healthy appearing HENMT: COMMON NORMALS: normocephalic and atraumatic HEAD & SCALP: n ormocephalic and atraumatic Eye: COMMON NORMALS: Equal, round and reactive pupils present and EOMs intact bilaterally PUPIL: Yes Equal, round and reactive pupils present Neck/C-Spine: COMMON NORMALS: full ROM and supple Chest: COMMONS NORMALS: normal inspection of the chest and normal palpation of entire chest wall Resp: COMMON NORMALS: normal respiratory effort, No retractions, No use of accessory muscles and clear to auscultation bilaterally AUSCULTATION: clear to auscultation bilaterally Cardio: COMMON NORMALS: regular rate, regular rhythm and No murmurs present (Cardio) RATE: regular rate RHYTHM: regular rhythm GI: COMMON NORMALS: Normal to inspection, nondistended, normoactive bowel sounds present, Soft to palpation, non-tender and no masses PALPATION: Yes Soft to palpation Extremity: COMMON NORMALS: normal to inspection and full ROM Neuro: COMMON NORMALS: patient oriented x3, moves all extremities and no focal motor deficits Psych: COMMON NORMALS: mental status grossly normal, Normal thought process present and cooperative THOUGHT PROCESS: Normal thought process present Skin: COMMON NORMALS: no rashes or lesions noted NARRATIVE SKIN EXAM: Skin tear noted to left forearm GENERAL SKIN EXAM: no rashes or lesions noted Course 2 Vital Signs: Vital signs: Vital Signs Temperature 98.4 F 02/03/23 09:55 Pulse Rate 103 H 02/03/23 13:04 Respiratory Rate 14 02/03/23 13:04 Blood Pressure 164/52 02/03/23 13:53 Pulse Oximetry 97 02/03/23 13:53 Oxygen Delivery Me thod Room Air 02/03/23 13:04 MDM - Nausea/Vomiting/Diarrhea Medical Decision Making Patient presents here with vomiting he has been able to tolerate p.o. here he has had no vomiting here. He has had frequent falls head CT is normal his blood work here is normal he has no abdominal pain on exam. We will prescribe him Zofran he is to follow-up with PCP and return if worsening. Medical Records I reviewed the patient's medical records. Lab Data I reviewed the patient's lab results. 02/03/23 11:40 02/03/23 11:40 Laboratory Results WBC 5.25 10^3/uL (3.29-11.43) 02/03/23 11:40 RBC 4.87 10^6/uL (3.85-5.65) 02/03/23 11:40 Hgb 15.40 g/dL (11.27-16.99) 02/03/23 11:40 Hct 46.7 % (37-53) 02/03/23 11:40 MCV 95.9 fl (82-101) 02/03/23 11:40 MCH 31.6 pg (27-33) 02/03/23 11:40 MCHC 33.0 g/dL (30-55) 02/03/23 11:40 RDW 11.4 % (12.1-15.1) L 02/03/23 11:40 Plt Count 162 10^3/cmm (157-399) 02/03/23 11:40 MPV 9.3 fL (7.4-10.4) 02/03/23 11:40 Neut % (Auto) 69.8 % 02/03/23 11:40 Lymph % (Auto) 16.8 % 02/03/23 11:40 Mccone % (Auto) 11.8 % 02/03/23 11:40 Eos % (Auto) 1.0 % 02/03/23 11:40 Baso % (Auto) 0.4 % 02/03/23 11:40 Neut # (Auto) 3.67 10^3/uL (1.8-7.7) 02/03/23 11:40 Lymph # (Auto) 0.9 10^3/uL (0.8-4.8) 02/03/23 11:40 Mccone # (Auto) 0.6 10^3/uL (0.2-0.9) 02/03/23 11:40 Eos # (Auto) 0.1 10^3/uL (0.0-0.8) 02/03/23 11:40 Baso # (Auto) 0.0 10^3/uL (0.0-0.1) 02/03/23 11:40 Nucleated RBC % (auto) 0 % 02/03/23 11:40 Nucleated RBCs # 0.0 /100WBC 02/03/23 11:40 Sodium 141 mmol/L (136-145) 02/03/23 11:40 Potassium 4.0 mmol/L (3.5-5.1) 02/03/23 11:40 Chloride 94 mmol/L (98-107) L 02/03/23 11:40 Carbon Dioxide 30 mmol/L (22-29) H 02/03/23 11:40 Anion Gap 21.0 (5-19) H 02/03/23 11:40 BUN 19 mg/dL (8-23) 02/03/23 11:40 Creatinine 0.9 mg/dL (0.7-1.2) 02/03/23 11:40 GFR Calculation 85.2 mL/min (90-130) L 02/03/23 11:40 Glucose 84 mg/dL (65-115) 02/03/23 11:40 Calculated Osmolality 293 mOsm/kg (285-295) 02/03/23 11:40 Calcium 10.1 mg/dL (8.5-10.5) 02/03/23 11:40 Total Bilirubin 0.5 mg/dL (0.15-1.2) 02/03/23 11:40 AST 56 U/L (0-40) H 02/03/23 11:40 ALT 51 U/L (0-41) H 02/03/23 11:40 Alkaline Phosphatase 72 U/L (40-130) 02/03/23 11:40 Total Protein 8.5 g/dL (6.6-8.7) 02/03/23 11:40 Albumin 4.9 g/dL (3.5-5.2) 02/03/23 11:40 Globulin 3.6 g/dL (1.3-4.6) 02/03/23 11:40 Lipase 12 U/L (13-60) L 02/03/23 11:40 Ethyl Alcohol < 10 mg/dL (0-10) 02/03/23 11:40 All radiology interpretation(s) finalized by discharge Discharge Plan Discharge Patient Disposition: Home Clinical Impression: Vomiting Qualifiers: Vomiting type: unspecified Nausea presence: with nausea Qualified Code(s): R 11.2 - Nausea with vomiting, unspecified Fall Qualifiers: Encounter type: initial encounter Qualified Code(s): W19.XXXA - Unspecified fall, initial encounter Condition: Stable Prescriptions: New ondansetron 4 mg tablet,disintegrating 4 mg PO Q6H PRN (Reason: nausea and vomiting) Qty: 14 0RF No Action magnesium oxide 250 mg magnesium tablet 250 mg PO DAILY thiamine HCl (vitamin B1) 100 mg tablet 100 mg PO DAILY ascorbate calcium (vitamin C) 500 mg tablet 500 mg PO DAILY cholecalciferol (vitamin D3) 10 mcg (400 unit) capsule 10 mcg PO DAILY omega 7-iqx-fbj-fish oil [Fish Oil] 300-1,000 mg capsule 1 cap PO DAILY krill oil 500 mg capsule 500 mg PO DAILY cilostazol 100 mg tablet 100 mg PO BID Qty: 180 3RF atorvastatin 20 mg tablet 20 mg PO DAILY Qty: 90 0RF Jardiance 25 mg tablet 25 mg PO QAM Qty: 90 0RF Lantus Solostar U-100 Insulin 100 unit/mL (3 mL) insulin pen See Rx Instructions SUBCUT .COMPLEX Qty: 90 0RF Hold Instructions: Glucose improved Rx Instructions: 15 units up to 25 Units subcutaneously daily; Ozempic 1 mg/dose (4 mg/3 mL) pen injector 1 mg SUBCUT .weekly Qty: 9 0RF Rx Instructions: on Friday naltrexone 50 mg tablet 50 mg PO DAILY Qty: 90 0RF ferrous sulfate 325 mg (65 mg iron) tablet 325 mg PO DAILY (DME) pen needle, diabetic 33 gauge x 5/32 needle See Rx Instructions .ROUTE .MEDSUPPLY Qty: 300 5RF Rx Instructions: 2 times day pantoprazole 40 mg tablet,delayed release (DR/EC) 40 mg PO DAILY Qty: 60 0RF Vitamin B-12 50 mcg Tablet 50 mcg PO DAILY Pepcid 20 mg Tablet 20 mg PO DAILY famotidine 40 mg/5 mL (8 mg/mL) suspension 5 ml PO DAILY gabapentin 300 mg capsule See Rx Instructions .ROUTE .COMPLEX Rx Instructions: 300 mg orally at noon and 600 mg at bedtime. Discharge Orders: Discharge ED (Routine); Ordered 02/03/23 Ordered By: Marcus Parker Referrals: John Rouse, HOE RUNNER-C [Primary Care Provider] - 1-3 days Discharge Diet: Advance as tolerated Discharge Activity: Resume usual activity Patient Instructions: Acute Nausea and Vomiting (ED), Fall Prevention (ED) Coding Level of Care Code ED [place] for Mahesh Rutherford
[2023-02-03 13:53] VITALS: BP 164/52; O2SAT 97
[2023-02-03 14:20] VITALS: BP 164/52; PULSE 103; O2SAT 97
== END 2023-02-03 14:22 | disposition home or self-care (01) ==
PROVIDERS: Emergency Provider Emergency Medicine; PCP Nurse Practitioner
DX: R11.2 Nausea with vomiting, unspecified (principal); Z79.4 Long term (current) use of insulin; S51.812A Laceration without foreign body of left forearm, initial encounter; Z87.891 Personal history of nicotine dependence; E78.2 Mixed hyperlipidemia; W19.XXXA Unspecified fall, initial encounter
CPT/HCPCS: 70450; 80053; 80307; 83690; 85025; 96374; 96375; 99285; J2405; J3411; J7030

== ENCOUNTER → 2023-04-16 15:18 | Outpatient (BNVA) | payer OTHER, MEDICARE, SELFPAY | PROVIDERS: PCP Nurse Practitioner; Visit Provider Nurse Practitioner | DX: I73.9 Peripheral vascular disease, unspecified (principal); E78.2 Mixed hyperlipidemia; E11.65 Type 2 diabetes mellitus with hyperglycemia; M79.2 Neuralgia and neuritis, unspecified; K21.9 Gastro-esophageal reflux disease without esophagitis; E11.9 Type 2 diabetes mellitus without complications; Z12.5 Encounter for screening for malignant neoplasm of prostate; M25.511 Pain in right shoulder; Z79.899 Other long term (current) drug therapy | CPT/HCPCS: 73030; 80053; 80061; 81000; 82607; 83036; G0103 ==

== ENCOUNTER 2024-01-28 13:23 | Inpatient (IN) | payer OTHER, MEDICARE, SELFPAY ==
[2024-01-28] VITALS (24 sets, daily range): BP systolic 81–111; BP diastolic 43–67; PULSE 100–124; RESP 12–26; TEMP 36.7–36.9; O2SAT 89–100; BMI 21.7
--- NOTE | 2024-01-28 13:46 | XRR_ITS ---
PROCEDURE INFORMATION: Exam: XR Chest Exam date and time: 01/28/2024 1:54 PM Age: 63 years old Clinical indication: Other: Weakness; Additional info: Nadir TECHNIQUE: Imaging protocol: Radiologic exam of the chest. Views: 1 view. COMPARISON: CR XR ribs RT mn 3V w CXR1V [id number] 08/22/2021 10:07 AM FINDINGS: Airway: Patent Lungs: Left lung calcified granuloma is benign. No consolidations. Pleural spaces: Unremarkable. No pleural effusion. No pneumothorax. Heart/Mediastinum: Unremarkable. No cardiomegaly. Vasculature: Calcified aortic knob. Bones/joints: There are healed right rib fractures. There are healed left rib fractures. XR/XR chest 1V portable [id number] IMPRESSION: No acute findings.
--- NOTE | 2024-01-28 14:37 | ECG_ITS ---
[employer] Test Date: 2024-01-28 Pat Name: Terrence Mayfield Department: Room: Gender: Male No Experience: : 1960 Requested By: Marcus Parker Order Number: [id number] Dinora MD: Preston Taylor M.D. Measurements Intervals [place] Rate: 104 P: 63 MT: 146 QRS: 58 QRSD: 91 T: 43 QT: 333 QTc: 440 Interpretive Statements SINUS TACHYCARDIA NONSPECIFIC ST & T-WAVE ABNORMALITY ABNORMAL RHYTHM ECG Compared to ECG 07/10/2022 14:03:26 T-wave abnormality now present Sinus rhythm no longer present Electronically Signed On 01-28-2024 19:14:42 CANINE DEPUTY by Preston Taylor M.D. [email or web address]
[2024-01-28] MEDS: sodium chloride 0.9% 1,000 ML 999 ML IV (15:04)
[2024-01-28 15:07] LABS: Basophils % 0.2 %; Eosinophils % 0.4 %; Lymphocytes # 0.4 10^3/uL (0.8-4.8); Lymphocytes % 8.2 %; Mean Corpuscular HGB Conc 27.5 g/dL (30-55); Mean Corpuscular Hemoglobin 30.2 pg (27-33); Mean Corpuscular Volume 109.9 fl (82-101); Mean Platelet Volume 9.2 fL (7.4-10.4); Monocytes # 0.6 10^3/uL (0.2-0.9); Monocytes % 12.8 %; Neutrophils # 3.49 10^3/uL (1.8-7.7); Neutrophils % 77.3 %; Nucleated Red Blood Cells # 0.1 /100WBC; Nucleated Red Blood Cells % 1.1 %; Platelet Count 207 10^3/cmm (157-399); Red Blood Count 1.72 10^6/uL (3.85-5.65); Red Cell Distribution Width 16.9 % (12.1-15.1); White Blood Count 4.52 10^3/uL (3.29-11.43)
--- NOTE | 2024-01-28 15:10 | ED_ITS ---
HPI - Weakness 2 General: Chief complaint: Weakness Stated complaint: low hemoglobin - sent by [facility] Time Seen by Provider: 01/28/24 14:32 Source: patient Mode of arrival: ambulatory Limitations: no limitations History of Present Illness: 63-year-old male with a history of alcoh olism states he has been having generalized weakness he states he feels very weak having a hard time walking he denies any pain anywhere he is seen at the clinic and they were concerned he may be anemic as he was pale and sent him here he denies any vomiting diarrhea PFSH ED 2 PFSH: Medical History (Updated 01/28/24 @ 16:20 by Marcus Parker MD) Cerebellar atrophy PAD (peripheral artery disease) Mild acid reflux Neuropathic pain Hyperlipidemia, mixed Alcohol abuse, daily use Johan Abraham's Use of cane as ambulatory aid Surgical History S/P femoral-popliteal bypass surgery History of colonoscopy May 2022 negative History of tonsillectomy age 6 History of hand fracture Right 5th finger pin History of femoral angiogram History of amputation Left 4th toe Family History Other Diabetes Denies family history of Dementia Chronic kidney disease (CKD) Anesthesia complication Bleeding disorder Lung disease Cancer Hypertension Stroke Social History Smoking and tobacco/nicotine status: former use of tobacco/nicotine Second hand smoke exposure: No Alcohol intake: current Alcohol intake frequency: 0-2 Drinks per Day Alcohol type: hard liquor Substance/Drug Use: unknown Adopted: No Caregiver/support person: No Lives independently: Yes Household members: spouse Housing: House Marital status: Number of children: 0 service: Yes branch: [employer] Current occupational status: retired Pets and animals: Yes Pets & animals: cat(s) Do you think of yourself as: Straight/Heterosexual Current gender identity: Male Course 2 Vital Signs: Vital signs: Vital Signs Temperature 98.0 F 01/28/24 13:33 Pulse Rate 102 H 01/28/24 13:33 Blood Pressure 95/53 01/28/24 13:33 Pulse Oximetry 100 01/28/24 13:33 Oxygen Delivery Me thod Room Air 01/28/24 13:33 MDM - Weakness Medical Decision Making Patient presents here with likely upper GI bleeding causing anemia did give him a dose of Protonix we will give him blood products of spoke to hospitalist along with surgeon will admit here. Medical Records I reviewed the patient's medical records. Lab Data I reviewed the patient's lab results. 01/28/24 14:31 01/28/24 14:31 Radiology Impressions Chest X-Ray 01/28/24 13:46 IMPRESSION: No acute findings. Laboratory Results WBC 4.52 10^3/uL (3.29-11.43) 01/28/24 14:31 RBC 1.72 10^6/uL (3.85-5.65) L 01/28/24 14:31 Hgb 5.20 g/dL (11.27-16.99) L* 01/28/24 14:31 Hct 18.9 % (37-53) L* 01/28/24 14:31 MCV 109.9 fl (82-101) H 01/28/24 14:31 MCH 30.2 pg (27-33) 01/28/24 14:31 MCHC 27.5 g/dL (30-55) L 01/28/24 14:31 RDW 16.9 % (12.1-15.1) H 01/28/24 14:31 Plt Count 207 10^3/cmm (157-399) 01/28/24 14:31 MPV 9.2 fL (7.4-10.4) 01/28/24 14:31 Neut % (Auto) 77.3 % 01/28/24 14:31 Lymph % (Auto) 8.2 % 01/28/24 14:31 Thomas % (Auto) 12.8 % 01/28/24 14:31 Eos % (Auto) 0.4 % 01/28/24 14:31 Baso % (Auto) 0.2 % 01/28/24 14:31 Neut # (Auto) 3.49 10^3/uL (1.8-7.7) 01/28/24 14:31 Lymph # (Auto) 0.4 10^3/uL (0.8-4.8) L 01/28/24 14:31 Thomas # (Auto) 0.6 10^3/uL (0.2-0.9) 01/28/24 14:31 Eos # (Auto) 0.0 10^3/uL (0.0-0.8) 01/28/24 14:31 Baso # (Auto) 0.0 10^3/uL (0.0-0.1) 01/28/24 14:31 Nucleated RBC % (auto) 1.1 % 01/28/24 14:31 Nucleated RBCs # 0.1 /100WBC 01/28/24 14:31 PT 15.20 SECONDS (12.1-14.9) H 01/28/24 14:31 INR 1.16 (0.8-1.2) 01/28/24 14:31 Sodium 134 mmol/L (136-145) L 01/28/24 14:31 Potassium 4.4 mmol/L (3.5-5.1) 01/28/24 14:31 Chloride 94 mmol/L (98-107) L 01/28/24 14:31 Carbon Dioxide 24 mmol/L (22-29) 01/28/24 14:31 Anion Gap 20.4 (5-19) H 01/28/24 14:31 BUN 18 mg/dL (8-23) 01/28/24 14:31 Creatinine 0.8 mg/dL (0.7-1.2) 01/28/24 14:31 GFR Calculation 97.3 mL/min (90-130) 01/28/24 14:31 Glucose 98 mg/dL (65-115) 01/28/24 14:31 Calculated Osmolality 280 mOsm/kg (285-295) L 01/28/24 14:31 Calcium 8.5 mg/dL (8.5-10.5) 01/28/24 14:31 Total Bilirubin 0.7 mg/dL (0.15-1.2) 01/28/24 14:31 AST 39 U/L (0-40) 01/28/24 14:31 ALT 26 U/L (0-41) 01/28/24 14:31 Alkaline Phosphatase 81 U/L (40-130) 01/28/24 14:31 Total Protein 6.1 g/dL (6.6-8.7) L 01/28/24 14:31 Albumin 4.0 g/dL (3.5-5.2) 01/28/24 14:31 Globulin 2.1 g/dL (1.3-4.6) 01/28/24 14:31 Ethyl Alcohol < 10 mg/dL (0-10) 01/28/24 14:31 All radiology interpretation(s) finalized by discharge Critical Care Time 2 Critical Care Time: Critical Care Time: Yes Total Critical Care Time: 40 Attestation: The high probability of a clinically significant, sudden or life threatening deterioration of the patient's gi system(s) required my full and direct attention, intervention and personal management. The critical care time is as shown. This time is in addition to time spent performing any reported procedures but includes the following: [x] Data and vital sign review and interpretation [x] Patient assessment, examination and intervention [x] Documentation [x] Medication orders and management Discharge Plan Discharge Patient Disposition: Admitted As Inpatient Clinical Impression: Anemia, GI bleed, Alcohol abuse, daily use Condition: Stable Prescriptions: No Action magnesium oxide 250 mg magnesium tablet 250 mg PO DAILY thiamine HCl (vitamin B1) [Vitamin B-1] 100 mg tablet 100 mg PO DAILY ascorbate calcium (vitamin C) 500 mg tablet 500 mg PO DAILY cholecalciferol (vitamin D3) 10 mcg (400 unit) capsule 10 mcg PO DAILY omega 1-oiq-vwu-fish oil [Fish Oil] 300-1,000 mg capsule 1 cap PO DAILY krill oil 500 mg capsule 500 mg PO DAILY Repatha Syringe 140 mg/mL syringe 140 mg SUBCUT .every 14 days Qty: 6 0RF Hold Instructions: Insurance ferrous sulfate 325 mg (65 mg iron) tablet 325 mg PO DAILY Ozempic 1 mg/dose (4 mg/3 mL) pen injector 1 mg SUBCUT .weekly Qty: 9 1RF Rx Instructions: on Friday pantoprazole 20 mg tablet,delayed release (DR/EC) 20 mg PO DAILY Qty: 90 1RF Jardiance 25 mg tablet 25 mg PO QAM Qty: 90 1RF cilostazol 50 mg tablet 50 mg PO BID Qty: 180 1RF atorvastatin 20 mg tablet 20 mg PO DAILY Qty: 90 1RF gabapentin 300 mg capsule See Rx Instructions .ROUTE .COMPLEX Qty: 450 1RF Rx Instructions: 300 mg orally at noon and 1200 mg at bedtime. ezetimibe [Zetia] 10 mg tablet 10 mg PO DAILY Qty: 90 1RF (DME) pen needle, diabetic 33 gauge x needle See Rx Instructions .ROUTE .MEDSUPPLY Qty: 300 5RF Rx Instructions: 2 times day Lantus Solostar U-100 Insulin 100 unit/mL (3 mL) insulin pen See Rx Instructions SUBCUT .COMPLEX Qty: 90 1RF Hold Instructions: Glucose improved Rx Instructions: 15 units up to 25 Units subcutaneously daily; Vitamin B-12 50 mcg Tablet 50 mcg PO DAILY Referrals: John Rouse, RIGGER APPRENTICE-C [Primary Care Provider] - Coding Level of Care Code ED [employer] Equipment Operator for Chg Fwd Related Data Home Medications Medication Instructions Recorded Confirmed ascorbate calcium (vitamin C) 500 500 mg PO DAILY 06/30/20 01/28/24 mg tablet magnesium oxide 250 mg PO DAILY 10/11/20 01/28/24 thiamine HCl (vitamin B1) 100 mg 100 mg PO DAILY 10/14/20 01/28/24 tablet (Vitamin B-1) cholecalciferol (vitamin D3) 10 10 mcg PO DAILY 04/23/22 01/28/24 mcg (400 unit) capsule krill oil 500 mg capsule 500 mg PO DAILY 04/23/22 01/28/24 omega 6-del-nyd-fish oil 300 1 cap PO DAILY 04/23/22 01/28/24 mg-1,000 mg capsule (Fish Oil) ferrous sulfate 325 mg (65 mg 325 mg PO DAILY 07/10/22 01/28/24 iron) tablet cyanocobalamin (vitamin B-12) 50 50 mcg PO DAILY 02/03/23 01/28/24 mcg tablet (Vitamin B-12) Previous Rx's Medication Instructions Recorded pen needle, diabetic 33 gauge x #300 ea 01/28/22 532 insulin glargine 100 unit/mL (3 See Rx Instructions SUBCUT 05/09/23 mL) subcutaneous pen (Lantus .COMPLEX #90 mL Solostar U-100 Insulin) atorvastatin 20 mg tablet 20 mg PO DAILY #90 tabs 09/16/23 cilostazol 50 mg tablet 50 mg PO BID #180 tabs 09/16/23 empagliflozin 25 mg tablet 25 mg PO QAM #90 tabs 09/16/23 (Jardiance) gabapentin 300 mg capsule See Rx Instructions .Route 09/16/23 .COMPLEX #450 caps pantoprazole 20 mg tablet,delayed 20 mg PO DAILY #90 tabs 09/16/23 release semaglutide 1 mg/dose (4 mg/3 mL) 1 mg (0.75 mL) SUBCUT .weekly #9 mL 09/16/23 subcutaneous pen injector ([employer]) evolocumab 140 mg/mL subcutaneous 140 mg SUBCUT .every 14 days #6 mL 11/04/23 syringe (Repatha Syringe) ezetimibe 10 mg tablet (Zetia) 10 mg PO DAILY #90 tabs 12/08/23 Allergies Allergy/AdvReac Type Severity Reaction Status Date / Time metformin Allergy Mild STOMACH Verified 01/28/24 13:41 varenicline [From Chantix] Allergy Mild BAD DREAMS Verified 01/28/24 13:41
[2024-01-28 15:27] LABS: Hematocrit 18.9 % (37-53)
[2024-01-28 15:29] LABS: INR 1.16 (0.8-1.2)
[2024-01-28 15:42] LABS: Alanine Aminotransferase 26 U/L (0-41); Alkaline Phosphatase 81 U/L (40-130); Anion Gap 20.4 (5-19); Aspartate Amino Transferase 39 U/L (0-40); Blood Urea Nitrogen 18 mg/dL (8-23); Calcium 8.5 mg/dL (8.5-10.5); Carbon Dioxide 24 mmol/L (22-29); Chloride 94 mmol/L (98-107); Globulin 2.1 g/dL (1.3-4.6); Glomerular Filtration Rate 97.3 mL/min (90-130); Glucose 98 mg/dL (65-115); Osmolality Calculated 280 mOsm/kg (285-295); Potassium 4.4 mmol/L (3.5-5.1); Sodium 134 mmol/L (136-145); Total Bilirubin 0.7 mg/dL (0.15-1.2); Total Protein 6.1 g/dL (6.6-8.7)
[2024-01-28 15:44] LABS: Alcohol Level < 10 mg/dL (0-10)
--- NOTE | 2024-01-28 16:08 | CTR_ITS ---
PROCEDURE INFORMATION: Exam: CT Abdomen And Pelvis With Contrast Exam date and time: 01/28/2024 5:21 PM Age: 63 years old Clinical indication: Other: Gi bleed TECHNIQUE: Imaging protocol: Computed tomography of the abdomen and pelvis with contrast. Radiation optimization: All CT scans at this facility use at least one of these dose optimization techniques: automated exposure control; mA and/or kV adjustment per patient size (includes targeted exams where dose is matched to clinical indication); or iterative reconstruction. Contrast material: OMNIPAQUE 350; Contrast volume: 100 ml; Contrast route: INTRAVENOUS (IV); COMPARISON: CT angio abd aorta runof [id number] 05/14/2022 1:34 PM RADIATION DOSE METRICS: Total DLP (mGy-cm): 395.21 FINDINGS: Lungs: Infiltrates versus atelectasis in the vcnkg-zmjzdsi-abah-left lung bases. Liver: Hepatic steatosis. Otherwise the liver is unremarkable. Gallbladder and biliary ducts: Haziness of the gallbladder salazar may be related to motion artifact versus cholecystitis. Pancreas: Normal. No ductal dilation. Spleen: Normal. No splenomegaly. Adrenal glands: Normal. No mass. Kidneys and ureters: Normal. No hydronephrosis. Stomach and bowel: There are some intraluminal hyperdensities within the small and large bowel which may be related to ingested material. Appendix: Normal appendix. Intraperitoneal space: Unremarkable. No free air. No significant fluid collection. Vasculature: Severe atherosclerosis of the abdominal aorta and the major branches. Lymph nodes: Unremarkable. No enlarged lymph nodes. Urinary bladder: The urinary bladder is slightly distended. Reproductive: Prostatomegaly. Bones/joints: Unremarkable. No acute fracture. Soft tissues: There are subcutaneous injection reactions involving the bilateral lower ventral abdomen. Other findings: Motion artifact limits this examination. CT/CT abdomen pelvis w con* [id number] IMPRESSION: 1. No obvious evidence of acute contrast extravasation although the study is limited due to motion artifact in the upper hemiabdomen including the fact that this study is not optimized for GI bleeding. If there is continued clinical concern for an acute GI bleed then follow up with a nuclear medicine tagged RBC scan. 2. There are hyperdensities within the bowel which may be related to ingested material rather than blood products. 3. Infiltrates versus atelectasis in the skbqq-gucdkiy-dhrq-left lung bases. 4. Severe atherosclerosis. 5. Additional incidental/chronic findings as above.
--- NOTE | 2024-01-28 16:09 | P.HP_ITS ---
Providers/Chief Complaint 2 Primary Care Provider: John Rouse, [facility] Chief Complaint: low hemoglobin - sent by [facility] History of Present Illness Terrence Mayfield is a 63 year old male with history of chronic alcohol abuse with daily whiskey use, PAD, type 2 diabetes mellitus scented to the ER by the PCP because he looked pale on examination. In the ER he was found to have a hemoglobin of 5.2. Patient denies any nausea or vomiting but does complain of few melanotic schools on and off for many weeks. He says he has lost up to 8 pounds the last couple of months. Examination sitting up in bed. Denies any nausea or vomiting or abdominal pain. Denies any dizziness or difficulty in breathing along with chest pain. Review of Systems 2 General: Reports: 10 or more systems reviewed and unremarkable except in HPI and below Const: Denies: fever(s), chills, body aches, change in appetite, change in weight, malaise, night sweats, diaphoresis, change in sleep pattern, daytime sleepiness or snoring Eyes: Denies: change in vision, blurry vision, photophobia, eye discomfort or eye discharge ENMT: Denies: throat pain, enlarged tonsils, hoarseness, mouth pain, oral sores, dry mouth, tinnitus, nasal congestion or post nasal drip Card: Denies: chest pain, palpitations, irregular heart rhythm, edema, swelling of feet/ankles, lightheadedness, syncope, pre-syncope, dyspnea on exertion, orthopnea, leg pain with exertion or acrocyanosis Resp: Denies: dyspnea, productive cough, non-productive cough, wheezing, stridor, pain on inspiration, change in phlegm color, hemoptysis or chest congestion GI: Denies: abdominal pain, nausea, vomiting, hematemesis, coffee ground emesis, dysphagia, heartburn, diarrhea, constipation, bloating, GI cramping, change in bowel habits, pain on defecation, hematochezia or melena : Denies: flank pain, difficulty urinating, dysuria, urinary frequency, urinary urgency, urinary hesitancy, urinary dribbling, difficulty starting urination, change in urine stream, nocturia or hematuria Musc: Denies: neck pain, back pain, extremity pain, joint pain, joint swelling, joint redness, joint stiffness or limited range of motion Neuro: Denies: headache(s), numbness in extremities, weakness in extremities, sensory changes, lack of coordination, difficulty walking, frequent falls, dizziness, vertigo, confusion, Slurred speech present, difficulty communicating thoughts or seizure-like activity Psych: Denies: anxiety, depression, mood swings, panic attacks, hopelessness or irritability Endo: Denies: polyuria, polydipsia, tired all the time, cold intolerance, excessive sweating, flushing or heat intolerance Shon/Lymph: Denies: easy bruising or easy bleeding All/Imm: Denies: tongue swelling, facial swelling or acute wheezing Medications/Allergies Home Medications Medication Instructions Recorded Confirmed Last Taken Type ascorbate calcium (vitamin C) 500 500 mg PO DAILY 06/30/20 01/28/24 01/27/24 History mg tablet magnesium oxide 250 mg PO DAILY 10/11/20 01/28/24 02/02/23 History thiamine HCl (vitamin B1) 100 mg 100 mg PO DAILY 10/14/20 01/28/24 02/02/23 History tablet (Vitamin B-1) pen needle, diabetic 33 gauge x #300 ea 01/28/22 01/28/24 Unknown Rx cholecalciferol (vitamin D3) 10 10 mcg PO DAILY 04/23/22 01/28/24 01/28/24 History mcg (400 unit) capsule krill oil 500 mg capsule 500 mg PO DAILY 04/23/22 01/28/24 02/02/23 History omega 0-aqu-pkb-fish oil 300 1 cap PO DAILY 04/23/22 01/28/24 02/02/23 History mg-1,000 mg capsule (Fish Oil) ferrous sulfate 325 mg (65 mg 325 mg PO DAILY 07/10/22 01/28/24 02/02/23 History iron) tablet cyanocobalamin (vitamin B-12) 50 50 mcg PO DAILY 02/03/23 01/28/24 01/28/24 History mcg tablet (Vitamin B-12) insulin glargine 100 unit/mL (3 See Rx Instructions SUBCUT 05/09/23 01/28/24 Unknown Rx mL) subcutaneous pen (Lantus .COMPLEX #90 mL Solostar U-100 Insulin) atorvastatin 20 mg tablet 20 mg PO DAILY #90 tabs 09/16/23 01/28/24 01/27/24 Rx cilostazol 50 mg tablet 50 mg PO BID #180 tabs 09/16/23 01/28/24 01/28/24 Rx empagliflozin 25 mg tablet 25 mg PO QAM #90 tabs 09/16/23 01/28/24 01/28/24 Rx (Jardiance) gabapentin 300 mg capsule See Rx Instructions .Route 09/16/23 01/28/24 01/28/24 Rx .COMPLEX #450 caps pantoprazole 20 mg tablet,delayed 20 mg PO DAILY #90 tabs 09/16/23 01/28/24 01/28/24 Rx release semaglutide 1 mg/dose (4 mg/3 mL) 1 mg (0.75 mL) SUBCUT .weekly #9 mL 09/16/23 01/28/24 Unknown Rx subcutaneous pen injector (Ozempic) evolocumab 140 mg/mL subcutaneous 140 mg SUBCUT .every 14 days #6 mL 11/04/23 01/28/24 Unknown Rx syringe (Repatha Syringe) ezetimibe 10 mg tablet (Zetia) 10 mg PO DAILY #90 tabs 12/08/23 01/28/24 Unknown Rx Allergies Allergy/AdvReac Type Severity Reaction Status Date / Time metformin Allergy Mild STOMACH Verified 01/28/24 13:41 varenicline [From Chantix] Allergy Mild BAD DREAMS Verified 01/28/24 13:41 PFSH Acute 2 PFSH: Medical History (Updated 01/28/24 @ 16:20 by Marcus Parker MD) Cerebellar atrophy PAD (peripheral artery disease) Mild acid reflux Neuropathic pain Hyperlipidemia, mixed Alcohol abuse, daily use Johan Rosario's Use of cane as ambulatory aid Surgical History S/P femoral-popliteal bypass surgery History of colonoscopy May 2022 negative History of tonsillectomy age 6 History of hand fracture Right 5th finger pin History of femoral angiogram History of amputation Left 4th toe Family History Other Diabetes Denies family history of Dementia Chronic kidney disease (CKD) Anesthesia complication Bleeding disorder Lung disease Cancer Hypertension Stroke Social History Smoking and tobacco/nicotine status: former use of tobacco/nicotine Second hand smoke exposure: No Alcohol intake: current Alcohol intake frequency: 0-2 Drinks per Day Alcohol type: hard liquor Substance/Drug Use: unknown Adopted: No Caregiver/support person: No Lives independently: Yes Household members: spouse Housing: House Marital status: Number of children: 0 service: Yes branch: [employer] Current occupational status: retired Pets and animals: Yes Pets & animals: cat(s) Do you think of yourself as: Straight/Heterosexual Current gender identity: Male Vitals/I&O/Wt Last Vital Signs Temp 98.0 F 01/28/24 13:33 Pulse 102 H 01/28/24 13:33 BP 95/53 01/28/24 13:33 Pulse Ox 100 01/28/24 13:33 O2 Del Method Room Air 01/28/24 13:33 Weight last 48 hrs Weight 63.049 kg Physical Exam 2 Narrative: General: No acute distress, AO x3, pallor present HEENT: PERRLA, pupils bilaterally equal and reactive Chest: Normal vesicular breath sounds, no added sounds, equal good air entry bilaterally CVS: S1-S2 regular, no murmurs, no tachycardia, no gallops, no rubs Abdomen: Soft, nontender, no organomegaly, bowel sounds present Neuro: No focal deficits, no facial deformity, AO x3, power 5/5 in all limbs Data 01/28/24 14:31 01/28/24 14:31 A&P Assessment and plan (1) Acute anemia: Most likely in setting of GI bleed. High likelihood of alcoholic gastritis. Patient does consume alcohol daily. Cannot rule out variceal bleed though unlikely. Found to have hemoglobin of 5.2. Baseline seems to be around 11. Target hemoglobin more than 7. Keep mean arterial pressure over 65. Transfused unit of PRBC. Check hemoglobin hematocrit every 12 hours. (2) GI bleed: Surgery consulted. Check CT on pelvis with contrast. Check lactate. Transfuse PRBC as above. Protonix 40 mg IV twice daily. LFTs so far normal. Hold off on octreotide. Possible plan for EGD in AM. NPO. (3) Alcohol abuse, daily use: Alcohol level negative on admission. [facility] protocol. (4) PAD (peripheral artery disease): Follows up with surgery as an outpatient. Hold off on cilostazol. Continue with statin. Appreciate recent lipid panel. (5) Diabetes mellitus with hyperglycemia, with long-term current use of insulin: Appreciate recent A1c. Sliding scale every 6 hours. Qualifiers: Diabetes mellitus type: type 2 Qualified Code(s): E11.65 - Type 2 diabetes mellitus with hyperglycemia; Z79.4 - prison (current) use of insulin Plan N.p.o. SCD for DVT prophylaxis Protonix will be sufficient for PUD prophylaxis. Attestations 2 Medical Necessity Statement*: Admission to ICU for more than 2 midnights for management of acute anemia in setting of GI bleed in a patient with chronic alcoholism, PAD on cilostazol Diagnoses Acute anemia D64.9 GI bleed K92.2 Alcohol abuse, daily use F10.10 PAD (peripheral artery disease) I73.9 Type 2 diabetes mellitus with hyperglycemia, with long-term current use of insulin E11.65; Z79.4 Diabetes mellitus type: type 2
[2024-01-28 16:31] LABS: Lactic Sepsis W/Reflex 1.7 mmol/L (0.5-2.2)
[2024-01-28 16:42] LABS: Procalcitonin 0.27 ng/mL (0-0.5)
[2024-01-28] MEDS: iohexol 350 mg/mL 500 mL Btl (per mL) IV (17:26)
[2024-01-28] MEDS: pantoprazole 40 mg SDV 80 MG IVP (17:58)
[2024-01-28] MEDS: pantoprazole 40 mg SDV IVP (18:25)
[2024-01-28] MEDS: sodium chloride 0.9% 1,000 ML 75 ML IV (18:25)
[2024-01-28 19:02] LABS: Bilirubin Urine Negative (Negative); Blood Urine Negative (Negative); Glucose Urine UA 2+ (Normal); Ketones Urine 3+ (Negative); Leukocyte Esterase Urine Negative (Negative); Nitrate Urine Negative (Negative); Protein Urine Negative (Negative); Urine Appearance Clear (CLEAR); Urine Color Yellow (Yellow); pH Urine 5.5 (5-7)
[2024-01-28 19:04] LABS: Add Urine Microscopic? YES; Bacteria Urine None Seen /hpf; RBC Urine 0-2 /hpf (0-2); Squamous Epithelial Cell Urine 0-5 /hpf (0-5); WBC Urine 0-5 /hpf (0-5)
[2024-01-28 19:18] LABS: Iron 262 ug/dL (59-158); Thyroid Stimulating Hormone 3.65 uIU/mL (0.27-4.20); Total Iron Binding Capacity 349 mcg/dl; Unsaturated Iron Binding 87 ug/dL (112-347)
[2024-01-28 19:23] LABS: Add Urine Culture? No; Specific Gravity, Urine 1.052 (1.005-1.030)
[2024-01-28 23:57] LABS: Glucose Point of Care 110 mg/dL (70-110)
[2024-01-29] VITALS (33 sets, daily range): BP systolic 100–143; BP diastolic 53–92; PULSE 76–119; RESP 17–32; TEMP 36.6–37.2; O2SAT 90–98
[2024-01-29 00:58] LABS: Basophils % 0.3 %; Eosinophils % 0.3 %; Lymphocytes # 0.2 10^3/uL (0.8-4.8); Lymphocytes % 6.4 %; Mean Corpuscular HGB Conc 26.7 g/dL (30-55); Mean Corpuscular Hemoglobin 29.2 pg (27-33); Mean Corpuscular Volume 109.2 fl (82-101); Mean Platelet Volume 9.4 fL (7.4-10.4); Monocytes # 0.3 10^3/uL (0.2-0.9); Monocytes % 10.8 %; Neutrophils % 80.9 %; Platelet Count 105 10^3/cmm (157-399); White Blood Count 2.97 10^3/uL (3.29-11.43)
[2024-01-29 01:06] LABS: Hematocrit 13.1 % (37-53)
[2024-01-29 06:09] LABS: Glucose Point of Care 109 mg/dL (70-110)
[2024-01-29] MEDS: pantoprazole 40 mg SDV IVP (06:20)
[2024-01-29 06:48] LABS: Basophils % 0.4 %; Eosinophils % 0.1 %; Hematocrit 33.9 % (37-53); Lymphocytes # 0.3 10^3/uL (0.8-4.8); Lymphocytes % 3.4 %; Mean Corpuscular HGB Conc 29.8 g/dL (30-55); Mean Corpuscular Hemoglobin 28.9 pg (27-33); Mean Corpuscular Volume 97.1 fl (82-101); Mean Platelet Volume 9.7 fL (7.4-10.4); Monocytes # 0.6 10^3/uL (0.2-0.9); Neutrophils # 6.76 10^3/uL (1.8-7.7); Neutrophils % 87.2 %; Nucleated Red Blood Cells # 0.1 /100WBC; Nucleated Red Blood Cells % 0.9 %; Platelet Count 187 10^3/cmm (157-399); Red Blood Count 3.49 10^6/uL (3.85-5.65); Red Cell Distribution Width 21.4 % (12.1-15.1); White Blood Count 7.75 10^3/uL (3.29-11.43)
--- NOTE | 2024-01-29 07:28 | P.CONIM_ITS ---
Providers/Reason For Consult 2 Consulting Physician/Specialty*: General Surgery Reason for Consult*: Upper GI bleeding Attending Physician: Travis Hollingsworth MD Primary Care Provider: VINCENT Carlson History of Present Illness History of Present Illness Terrence Mayfield is a 63 year old male who was admitted to the hospital with acute anemia and suspected upper GI bleeding, according to patient he was feeling weak and therefore he went to an outside clinic, his hemoglobin was noted to be low and he was pale therefore was referred to the emergency department, while he has complaint of abdominal pain nausea and vomit the digital rectal examination in the ED show possible melena. A CT scan was unremarkable. Review of Systems 2 General: Reports: 10 or more systems reviewed and unremarkable except in HPI and below Medications/Allergies Home Medications Medication Instructions Recorded Confirmed Last Taken Type ascorbate calcium (vitamin C) 500 500 mg PO DAILY 06/30/20 01/28/24 01/27/24 History mg tablet magnesium oxide 250 mg PO DAILY 10/11/20 01/28/24 02/02/23 History thiamine HCl (vitamin B1) 100 mg 100 mg PO DAILY 10/14/20 01/28/24 02/02/23 History tablet (Vitamin B-1) pen needle, diabetic 33 gauge x #300 ea 01/28/22 01/28/24 Unknown Rx cholecalciferol (vitamin D3) 10 10 mcg PO DAILY 04/23/22 01/28/24 01/28/24 History mcg (400 unit) capsule krill oil 500 mg capsule 500 mg PO DAILY 04/23/22 01/28/24 02/02/23 History omega 2-vuk-xxj-fish oil 300 1 cap PO DAILY 04/23/22 01/28/24 02/02/23 History mg-1,000 mg capsule (Fish Oil) ferrous sulfate 325 mg (65 mg 325 mg PO DAILY 07/10/22 01/28/24 02/02/23 History iron) tablet cyanocobalamin (vitamin B-12) 50 50 mcg PO DAILY 02/03/23 01/28/24 01/28/24 History mcg tablet (Vitamin B-12) insulin glargine 100 unit/mL (3 See Rx Instructions SUBCUT 05/09/23 01/28/24 Unknown Rx mL) subcutaneous pen (Lantus .COMPLEX #90 mL Solostar U-100 Insulin) atorvastatin 20 mg tablet 20 mg PO DAILY #90 tabs 09/16/23 01/28/24 01/27/24 Rx cilostazol 50 mg tablet 50 mg PO BID #180 tabs 09/16/23 01/28/24 01/28/24 Rx empagliflozin 25 mg tablet 25 mg PO QAM #90 tabs 09/16/23 01/28/24 01/28/24 Rx (Jardiance) gabapentin 300 mg capsule See Rx Instructions .Route 09/16/23 01/28/24 01/28/24 Rx .COMPLEX #450 caps pantoprazole 20 mg tablet,delayed 20 mg PO DAILY #90 tabs 09/16/23 01/28/24 01/28/24 Rx release semaglutide 1 mg/dose (4 mg/3 mL) 1 mg (0.75 mL) SUBCUT .weekly #9 mL 09/16/23 01/28/24 Unknown Rx subcutaneous pen injector (Ozempic) evolocumab 140 mg/mL subcutaneous 140 mg SUBCUT .every 14 days #6 mL 11/04/23 01/28/24 Unknown Rx syringe (Repatha Syringe) ezetimibe 10 mg tablet (Zetia) 10 mg PO DAILY #90 tabs 12/08/23 01/28/24 Unknown Rx Allergies Allergy/AdvReac Type Severity Reaction Status Date / Time metformin Allergy Mild STOMACH Verified 01/28/24 13:41 varenicline [From Chantix] Allergy Mild BAD DREAMS Verified 01/28/24 13:41 Current Medications Generic Name Dose Route Start Last Admin Trade Name Freq PRN Reason Stop Dose Admin Sodium Chloride 1,000 mls @ 75 mls/hr 01/28/24 18:06 01/28/24 19:00 Sodium Chloride 0.9% IV 75 mls/hr .[id number] TAMMIE Infusion Insulin Human Lispro 0 unit 01/28/24 18:06 01/29/24 06:14 Insulin Lispro 100 Unit/1 Ml SUBCUT Not Given Q6H TAMMIE Protocol Pantoprazole Sodium 40 mg 01/28/24 18:06 01/29/24 06:20 Pantoprazole 40 Mg Sdv IVP 40 mg Q12H TAMMIE Administration PFSH Acute 2 PFSH: Medical History (Updated 01/28/24 @ 16:20 by Marcus Parker MD) Cerebellar atrophy PAD (peripheral artery disease) Mild acid reflux Neuropathic pain Hyperlipidemia, mixed Alcohol abuse, daily use Johan Rosario's Use of cane as ambulatory aid Surgical History S/P femoral-popliteal bypass surgery History of colonoscopy May 2022 negative History of tonsillectomy age 6 History of hand fracture Right 5th finger pin History of femoral angiogram History of amputation Left 4th toe Family History Other Diabetes Denies family history of Dementia Chronic kidney disease (CKD) Anesthesia complication Bleeding disorder Lung disease Cancer Hypertension Stroke Social History Smoking and tobacco/nicotine status: former use of tobacco/nicotine Second hand smoke exposure: No Alcohol intake: current Alcohol intake frequency: 0-2 Drinks per Day Alcohol type: hard liquor Substance/Drug Use: unknown Adopted: No Caregiver/support person: No Lives independently: Yes Household members: spouse Housing: House Marital status: Number of children: 0 service: Yes branch: [employer] Current occupational status: retired Pets and animals: Yes Pets & animals: cat(s) Do you think of yourself as: Straight/Heterosexual Current gender identity: Male Vitals/I&O/Wt Last Vital Signs Temp 98.2 F 01/29/24 05:04 Pulse 113 H 01/29/24 06:10 Resp 25 H 01/29/24 06:10 BP 131/89 01/29/24 06:10 Pulse Ox 98 01/29/24 06:10 O2 Del Method Room Air 01/28/24 23:37 01/28/24 01/29/24 01/29/24 22:59 06:59 14:59 Intake Total 1043.75 / 1043.75 700 / 1743.75 Output Total 625 / 625 500 / 1125 Balance 418.75 / 418.75 200 / 618.75 Weight last 48 hrs Weight 139 lb Physical Exam 2 GI: OTHER: Abdomen soft nontender nondistended. Data 01/29/24 06:40 01/28/24 14:31 A&P Assessment and plan (1) Alcohol abuse, daily use: (2) Acute anemia: (3) GI bleed: Plan After complete history, physical examination and review of all available clinical data the following is my assessment. Patient current symptoms may be due to alcoholic induced gastritis versus peptic ulcer disease, I agree with proceeding with upper endoscopy, I discussed all recent benefits of the procedure with the patient including the risk of bleeding, infection, perforation of the esophagus stomach or duodenum, need for additional interventions, need for transfer to higher level of care. Patient shows understanding agrees with the plan. N.p.o. for endoscopy today Carafate and Protonix scheduled Can advance diet after endoscopy. Coding Level of Care Code Acute Code for Chg Fwd Diagnoses Alcohol abuse, daily use F10.10 Acute anemia D64.9 GI bleed K92.2
[2024-01-29] MEDS: sodium chloride 0.9% 1,000 ML 75 ML IV (07:47)
--- NOTE | 2024-01-29 07:53 | PC.NURSE ---
off unit with gi lab staff
--- NOTE | 2024-01-29 08:08 | P.ANESASSM_ITS ---
Pre-Anesthetic Assessment Height/Weight: Height 1.7 m Weight 63.049 kg Temp Pulse Resp BP Pulse Ox O2 Del Method 98.2 F 113 H 25 H 131/89 98 Room Air 01/29/24 05:04 01/29/24 06:10 01/29/24 06:10 01/29/24 06:10 01/29/24 06:10 01/28/24 23:37 Preop Diagnosis: GI Bleeding Operation Date: 01/29/24 08:00 Proposed Procedures p EGD(Not Applicable) - Panda Saletr MD Familial anesthetic complications: none Was Beta Rodolfo taken within 24 hours: N/A Was Clonidine taken within 24 hours: N/A Social Alcohol and Tobacco Exam alert, oriented x 3, clear to auscultation bilaterally and regular rate & rhythm Airway Mallampati: Class II Dentition: full GI Gi bleed Metabolic Diabetes Mellitus and Hyperlipidemia Anesthetic Plan ASA status: 4 Anesthesia: General Other: RSI d/t unknown semaglutide use and possible esophagel varies Risk of > 500 ml blood loss (7ml/kg in children): No Medications/Allergies Home Medications Medication Instructions Recorded Confirmed Last Taken Type ascorbate calcium (vitamin C) 500 500 mg PO DAILY 06/30/20 01/28/24 01/27/24 History mg tablet magnesium oxide 250 mg PO DAILY 10/11/20 01/28/24 02/02/23 History thiamine HCl (vitamin B1) 100 mg 100 mg PO DAILY 10/14/20 01/28/24 02/02/23 History tablet (Vitamin B-1) pen needle, diabetic 33 gauge x #300 ea 01/28/22 01/28/24 Unknown Rx cholecalciferol (vitamin D3) 10 10 mcg PO DAILY 04/23/22 01/28/24 01/28/24 History mcg (400 unit) capsule krill oil 500 mg capsule 500 mg PO DAILY 04/23/22 01/28/24 02/02/23 History omega 2-oyu-ikq-fish oil 300 1 cap PO DAILY 04/23/22 01/28/24 02/02/23 History mg-1,000 mg capsule (Fish Oil) ferrous sulfate 325 mg (65 mg 325 mg PO DAILY 07/10/22 01/28/24 02/02/23 History iron) tablet cyanocobalamin (vitamin B-12) 50 50 mcg PO DAILY 02/03/23 01/28/24 01/28/24 History mcg tablet (Vitamin B-12) insulin glargine 100 unit/mL (3 See Rx Instructions SUBCUT 05/09/23 01/28/24 Unknown Rx mL) subcutaneous pen (Lantus .COMPLEX #90 mL Solostar U-100 Insulin) atorvastatin 20 mg tablet 20 mg PO DAILY #90 tabs 09/16/23 01/28/24 01/27/24 Rx cilostazol 50 mg tablet 50 mg PO BID #180 tabs 09/16/23 01/28/24 01/28/24 Rx empagliflozin 25 mg tablet 25 mg PO QAM #90 tabs 09/16/23 01/28/24 01/28/24 Rx (Jardiance) gabapentin 300 mg capsule See Rx Instructions .Route 09/16/23 01/28/24 01/28/24 Rx .COMPLEX #450 caps pantoprazole 20 mg tablet,delayed 20 mg PO DAILY #90 tabs 09/16/23 01/28/24 01/28/24 Rx release semaglutide 1 mg/dose (4 mg/3 mL) 1 mg (0.75 mL) SUBCUT .weekly #9 mL 09/16/23 01/28/24 Unknown Rx subcutaneous pen injector (Ozempic) evolocumab 140 mg/mL subcutaneous 140 mg SUBCUT .every 14 days #6 mL 11/04/23 01/28/24 Unknown Rx syringe (Repatha Syringe) ezetimibe 10 mg tablet (Zetia) 10 mg PO DAILY #90 tabs 12/08/23 01/28/24 Unknown Rx Allergies Allergy/AdvReac Type Severity Reaction Status Date / Time metformin Allergy Mild STOMACH Verified 01/28/24 13:41 varenicline [From Chantix] Allergy Mild BAD DREAMS Verified 01/28/24 13:41 Current Medications Generic Name Dose Route Start Last Admin Trade Name Freq PRN Reason Stop Dose Admin Sodium Chloride 1,000 mls @ 75 mls/hr 01/28/24 18:06 01/29/24 07:47 Sodium Chloride 0.9% IV 75 mls/hr .[id number] TAMMIE Administration Insulin Human Lispro 0 unit 01/28/24 18:06 01/29/24 06:14 Insulin Lispro 100 Unit/1 Ml SUBCUT Not Given Q6H TAMMIE Protocol Pantoprazole Sodium 40 mg 01/28/24 18:06 01/29/24 06:20 Pantoprazole 40 Mg Sdv IVP 40 mg Q12H TAMMIE Administration PFSH Anesthesia Medical History (Updated 01/28/24 @ 16:20 by Marcus Parker MD) Cerebellar atrophy PAD (peripheral artery disease) Mild acid reflux Neuropathic pain Hyperlipidemia, mixed Alcohol abuse, daily use Johan Rosario's Use of cane as ambulatory aid Surgical History S/P femoral-popliteal bypass surgery History of colonoscopy May 2022 negative History of tonsillectomy age 6 History of hand fracture Right 5th finger pin History of femoral angiogram History of amputation Left 4th toe Family History Other Diabetes Denies family history of Dementia Chronic kidney disease (CKD) Anesthesia complication Bleeding disorder Lung disease Cancer Hypertension Stroke Social History Smoking and tobacco/nicotine status: former use of tobacco/nicotine Second hand smoke exposure: No Alcohol intake: current Alcohol intake frequency: 0-2 Drinks per Day Alcohol type: hard liquor Substance/Drug Use: unknown Adopted: No Caregiver/support person: No Lives independently: Yes Household members: spouse Housing: House Marital status: Number of children: 0 service: Yes branch: [employer] Current occupational status: retired Pets and animals: Yes Pets & animals: cat(s) Do you think of yourself as: Straight/Heterosexual Current gender identity: Male Data Anesthesia 01/29/24 06:40 01/28/24 14:31 Short CBC 01/28/24 01/29/24 01/29/24 Range/Units 14:31 00:32 06:40 WBC 4.52 2.97 L 7.75 (3.29-11.43) 10^3/uL Hgb 5.20 L* 3.50 L* D 10.10 L D (11.27-16.99) g/dL Hct 18.9 L* 13.1 L* D 33.9 L D (37-53) % MCV 109.9 H 109.2 H 97.1 D (82-101) fl Plt Count 207 105 L D 187 D (157-399) 10^3/cmm Neut % (Auto) 77.3 80.9 87.2 % Neut # (Auto) 3.49 2.40 6.76 (1.8-7.7) 10^3/uL BMP 01/28/24 14:31 Sodium 134 L Potassium 4.4 Chloride 94 L Carbon Dioxide 24 BUN 18 Creatinine 0.8 Glucose 98 Calcium 8.5 Liver Function 01/28/24 Range/Units 14:31 Total Bilirubin 0.7 (0.15-1.2) mg/dL AST 39 (0-40) U/L ALT 26 (0-41) U/L Alkaline Phosphatase 81 (40-130) U/L Albumin 4.0 (3.5-5.2) g/dL Urine 01/28/24 Range/Units 18:50 Urine Color Yellow (Yellow) Urine Appearance Clear (CLEAR) Urine pH 5.5 (5-7) Ur Specific [place] 1.052 H (1.005-1.030) Urine Protein Negative (Negative) Urine Glucose (UA) 2+ H (Normal) Urine Ketones 3+ H (Negative) Urine Nitrate Negative (Negative) Urine Bilirubin Negative (Negative) Ur Leukocyte Esterase Negative (Negative) Urine RBC 0-2 (0-2) /hpf Urine WBC 0-5 (0-5) /hpf Blood Bank 01/28/24 16:14 Blood Type O Positive Rho(D) Type Rh positive Antibody Screen Negative Coags 01/28/24 14:31 PT 15.20 H INR 1.16 Cardiac Studies: 2 No Data to Display
--- NOTE | 2024-01-29 08:16 | PM.MISC ---
Miscellaneous Note Purpose of Documentation: Update on patient care Note: Upper endoscopy was done, no active bleeding but there is stigmata of bleeding in contact bleeding from the antrum due to gastric antral vascular ectasia. If there is recurrent upper GI bleeding patient will need to be evaluated by GI team for possible argon plasma coagulation of the antral vessels versus band ligation, these are procedures that I cannot provide no institutions. In the interim continue high-dose PPI, Carafate twice daily. Cleared to advance diet as tolerated
--- NOTE | 2024-01-29 08:45 | PC.NURSE ---
back from lab
[2024-01-29] MEDS: folic acid 1 mg Tablet PO (08:49)
[2024-01-29] MEDS: multivitamin therapeutic Tablet 1 TAB PO (08:49)
[2024-01-29] MEDS: atorvastatin 40 mg Tablet PO (08:49)
[2024-01-29] MEDS: thiamine 100 mg Tablet PO (08:49)
--- NOTE | 2024-01-29 08:50 | ANE.PACU2 ---
Inpatient post-anesthesia follow up: Airway intact: Yes Vital signs: Temperature 98.9 F Pulse Rate 76 Respiratory Rate 18 Blood Pressure 105/70 Pulse Oximetry 95 Oxygen Delivery Me thod Room Air Oxygen Flow Rate Fraction of Inspir ed Oxygen Hydration adequate: Yes Nausea and vomiting: No Pain level: 1 Mental status: Baseline
--- NOTE | 2024-01-29 09:32 | PC.NURSE ---
Patient had a mental status change after gi procedure, being uncooperative and speech more slurred than usual wanting to leave the hospital. Dr Hollingsworth notified and gave order for Precedex and to monitor condition related to post anasthesia
[2024-01-29 10:10] LABS: Alanine Aminotransferase 33 U/L (0-41); Albumin Level 3.6 g/dL (3.5-5.2); Alkaline Phosphatase 93 U/L (40-130); Anion Gap 29.2 (5-19); Aspartate Amino Transferase 45 U/L (0-40); Blood Urea Nitrogen 13 mg/dL (8-23); Calcium 8.6 mg/dL (8.5-10.5); Carbon Dioxide 12 mmol/L (22-29); Chloride 98 mmol/L (98-107); Globulin 2.6 g/dL (1.3-4.6); Glomerular Filtration Rate 97.3 mL/min (90-130); Glucose 120 mg/dL (65-115); Magnesium 2.1 mg/dL (1.7-2.3); Osmolality Calculated 281 mOsm/kg (285-295); Phosphorus 3.4 mg/dL (2.5-4.5); Potassium 4.2 mmol/L (3.5-5.1); Sodium 135 mmol/L (136-145); Total Bilirubin 1.6 mg/dL (0.15-1.2); Total Protein 6.2 g/dL (6.6-8.7)
[2024-01-29 10:55] LABS: Folate Level > 20.0 ng/mL (4.5-32.2)
[2024-01-29] MEDS: sucralfate 1 gm/10 mL Oral Liq UDC PO (11:19)
[2024-01-29 11:30] LABS: Glucose Point of Care 128 mg/dL (70-110)
--- NOTE | 2024-01-29 11:44 | P.DS_ITS ---
Discharge Providers Date of Admission: 01/28/24 16:46 Date of Discharge: January 29, 2024 Attending Provider at Admission: Travis Hollingsworth MD Attending Provider at Discharge: Travis Hollingsworth MD Consults: Surgery: Dr. Gavin Carvajal Primary Care Provider: VINCENT Carlson Diagnoses at Discharge Discharge Diagnosis (1) Alcohol abuse, daily use: Status: Chronic Permanent problem details: Johan Rosario's (2) Acute anemia: Status: Acute (3) GI bleed: Status: Acute Reason for Visit Reason for Visit: low hemoglobin - sent by [facility] Hospital Course Terrence Mayfield is a 63 year old male with history of chronic alcohol abuse with daily whiskey use, PAD, type 2 diabetes mellitus scented to the ER by the PCP because he looked pale on examination. In the ER he was found to have a hemoglobin of 5.2. Patient denies any nausea or vomiting but does complain of few melanotic schools on and off for many weeks. He says he has lost up to 8 pounds the last couple of months. Examination sitting up in bed. Denies any nausea or vomiting or abdominal pain. Denies any dizziness or difficulty in breathing along with chest pain. Patient went to the hospital for management of acute anemia. Surgery was consulted. He received overall 3 and a blood transfusion. 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 Patient tolerated diet well. He has been discharged in hemodynamically stable condition on oral Protonix twice daily for next 4 weeks followed by Protonix daily, Carafate before meals and at bedtime for next 4 weeks. He is advised to follow-up with his PCP next 1 week for a repeat CBC, follow-up with elementary school reading teacher as an outpatient for further management of gastric antral vascular ectasia. He has been advised in detail to abstain from alcohol use. Hemoglobin improved to 10.1 by the time of discharge. Physical Exam Narrative: General: No acute distress, AO x3 HEENT: PERRLA, pupils bilaterally equal and reactive Chest: Normal vesicular breath sounds, no added sounds, equal good air entry bilaterally CVS: S1-S2 regular, no murmurs, no tachycardia, no gallops, no rubs Abdomen: Soft, nontender, no organomegaly, bowel sounds present Neuro: No focal deficits, no facial deformity, AO x3, power 5/5 in all limbs Discharge Data Studies Completed and Pending Completed Studies During Hospitalization Category Date Time Status CT abdomen pelvis w con* [id number] Stat Cat Scan 01/28/24 16:08 Completed CXRP [XR chest 1V portable [id number]] Stat Exams 01/28/24 13:46 Completed Pending at discharge Category Date Time Status Hemoglobin and Hematocrit Q12H Lab 01/29/24 20:00 Ordered Hemoglobin and Hematocrit Q12H Lab 01/30/24 08:00 Ordered Leukocyte Reduced RBC Stat Lab 01/28/24 16:14 Results Type and Screen Stat Lab 01/28/24 16:14 Results Radiology Impressions Chest X-Ray 01/28/24 13:46 IMPRESSION: No acute findings. Abdomen/Pelvis CT 01/28/24 16:08 IMPRESSION: 1. No obvious evidence of acute contrast extravasation although the study is limited due to motion artifact in the upper hemiabdomen including the fact that this study is not optimized for GI bleeding. If there is continued clinical concern for an acute GI bleed then follow up with a nuclear medicine tagged RBC scan. 2. There are hyperdensities within the bowel which may be related to ingested material rather than blood products. 3. Infiltrates versus atelectasis in the pqokl-nfffpqc-abhx-left lung bases. 4. Severe atherosclerosis. 5. Additional incidental/chronic findings as above. Laboratory Results WBC 7.75 10^3/uL (3.29-11.43) 01/29/24 06:40 RBC 3.49 10^6/uL (3.85-5.65) L 01/29/24 06:40 Hgb 10.10 g/dL (11.27-16.99) L D 01/29/24 06:40 Hct 33.9 % (37-53) L D 01/29/24 06:40 MCV 97.1 fl (82-101) D 01/29/24 06:40 MCH 28.9 pg (27-33) 01/29/24 06:40 MCHC 29.8 g/dL (30-55) L D 01/29/24 06:40 RDW 21.4 % (12.1-15.1) H 01/29/24 06:40 Plt Count 187 10^3/cmm (157-399) D 01/29/24 06:40 MPV 9.7 fL (7.4-10.4) 01/29/24 06:40 Neut % (Auto) 87.2 % 01/29/24 06:40 Lymph % (Auto) 3.4 % 01/29/24 06:40 Meeker % (Auto) 8.0 % 01/29/24 06:40 Eos % (Auto) 0.1 % 01/29/24 06:40 Baso % (Auto) 0.4 % 01/29/24 06:40 Neut # (Auto) 6.76 10^3/uL (1.8-7.7) 01/29/24 06:40 Lymph # (Auto) 0.3 10^3/uL (0.8-4.8) L 01/29/24 06:40 Meeker # (Auto) 0.6 10^3/uL (0.2-0.9) 01/29/24 06:40 Eos # (Auto) 0.0 10^3/uL (0.0-0.8) 01/29/24 06:40 Baso # (Auto) 0.0 10^3/uL (0.0-0.1) 01/29/24 06:40 Nucleated RBC % (auto) 0.9 % 01/29/24 06:40 Nucleated RBCs # 0.1 /100WBC 01/29/24 06:40 PT 15.20 SECONDS (12.1-14.9) H 01/28/24 14:31 INR 1.16 (0.8-1.2) 01/28/24 14:31 Sodium 135 mmol/L (136-145) L 01/29/24 09:43 Potassium 4.2 mmol/L (3.5-5.1) 01/29/24 09:43 Chloride 98 mmol/L (98-107) 01/29/24 09:43 Carbon Dioxide 12 mmol/L (22-29) L 01/29/24 09:43 Anion Gap 29.2 (5-19) H 01/29/24 09:43 BUN 13 mg/dL (8-23) 01/29/24 09:43 Creatinine 0.8 mg/dL (0.7-1.2) 01/29/24 09:43 GFR Calculation 97.3 mL/min (90-130) 01/29/24 09:43 Glucose 120 mg/dL (65-115) H 01/29/24 09:43 POC Glucose 128 mg/dL (70-110) H 01/29/24 11:16 Calculated Osmolality 281 mOsm/kg (285-295) L 01/29/24 09:43 Lactic Acid 1.7 mmol/L (0.5-2.2) 01/28/24 14:31 Calcium 8.6 mg/dL (8.5-10.5) 01/29/24 09:43 Phosphorus 3.4 mg/dL (2.5-4.5) 01/29/24 09:43 Magnesium 2.1 mg/dL (1.7-2.3) 01/29/24 09:43 Iron 262 ug/dL (59-158) H 01/28/24 14:31 TIBC 349 mcg/dl 01/28/24 14:31 % Saturation 75.0 % (20-50) H 01/28/24 14:31 Unsat Iron Binding 87 ug/dL (112-347) L 01/28/24 14:31 Total Bilirubin 1.6 mg/dL (0.15-1.2) H 01/29/24 09:43 AST 45 U/L (0-40) H 01/29/24 09:43 ALT 33 U/L (0-41) 01/29/24 09:43 Alkaline Phosphatase 93 U/L (40-130) 01/29/24 09:43 Total Protein 6.2 g/dL (6.6-8.7) L 01/29/24 09:43 Albumin 3.6 g/dL (3.5-5.2) 01/29/24 09:43 Globulin 2.6 g/dL (1.3-4.6) 01/29/24 09:43 Folate > 20.0 ng/mL (4.5-32.2) 01/29/24 09:43 Procalcitonin 0.27 ng/mL (0-0.5) 01/28/24 14:31 TSH 3.65 uIU/mL (0.27-4.20) 01/28/24 14:31 Urine Color Yellow (Yellow) 01/28/24 18:50 Urine Appearance Clear (CLEAR) 01/28/24 18:50 Urine pH 5.5 (5-7) 01/28/24 18:50 Ur Specific Kathleen 1.052 (1.005-1.030) H 01/28/24 18:50 Urine Protein Negative (Negative) 01/28/24 18:50 Urine Glucose (UA) 2+ (Normal) H 01/28/24 18:50 Urine Ketones 3+ (Negative) H 01/28/24 18:50 Urine Blood Negative (Negative) 01/28/24 18:50 Urine Nitrate Negative (Negative) 01/28/24 18:50 Urine Bilirubin Negative (Negative) 01/28/24 18:50 Urine Urobilinogen 1.0 mg/dL (Negative) 01/28/24 18:50 Ur Leukocyte Esterase Negative (Negative) 01/28/24 18:50 Urine RBC 0-2 /hpf (0-2) 01/28/24 18:50 Urine WBC 0-5 /hpf (0-5) 01/28/24 18:50 Ur Squamous Epith Cells 0-5 /hpf (0-5) 01/28/24 18:50 Amorphous Sediment Not Reportable 01/28/24 18:50 Urine Bacteria None seen /hpf (NONE) 01/28/24 18:50 Hyaline Casts 0.40 /lpf 01/28/24 18:50 Ethyl Alcohol < 10 mg/dL (0-10) 01/28/24 14:31 Blood Type O Positive 01/28/24 16:14 Rho(D) Type Rh positive 01/28/24 16:14 Antibody Screen Negative 01/28/24 16:14 Crossmatch See Detail 01/28/24 16:14 Vitals Last Vital Signs Temp 98.2 F 01/29/24 05:04 Pulse 113 H 01/29/24 06:10 Resp 25 H 01/29/24 06:10 BP 131/89 01/29/24 06:10 Pulse Ox 98 01/29/24 06:10 O2 Del Method Room Air 01/28/24 23:37 Discharge Plan Discharge Patient Disposition: Home Condition: Stable Prescriptions: New sucralfate 100 mg/mL Suspension 1 g PO AC&BEDTIME Qty: 1000 0RF pantoprazole [Protonix] 40 mg tablet,delayed release (DR/EC) 40 mg PO BID Qty: 60 0RF Rx Instructions: Twice daily for 4 weeks, then once daily Continued magnesium oxide 250 mg magnesium tablet 250 mg PO DAILY thiamine HCl (vitamin B1) [Vitamin B-1] 100 mg tablet 100 mg PO DAILY ascorbate calcium (vitamin C) 500 mg tablet 500 mg PO DAILY cholecalciferol (vitamin D3) 10 mcg (400 unit) capsule 10 mcg PO DAILY omega 0-yyc-emr-fish oil [Fish Oil] 300-1,000 mg capsule 1 cap PO DAILY krill oil 500 mg capsule 500 mg PO DAILY Repatha Syringe 140 mg/mL syringe 140 mg SUBCUT .every 14 days Qty: 6 0RF Hold Instructions: Insurance ferrous sulfate 325 mg (65 mg iron) tablet 325 mg PO DAILY Ozempic 1 mg/dose (4 mg/3 mL) pen injector 1 mg SUBCUT .weekly Qty: 9 1RF Rx Instructions: on Friday Jardiance 25 mg tablet 25 mg PO QAM Qty: 90 1RF atorvastatin 20 mg tablet 20 mg PO DAILY Qty: 90 1RF gabapentin 300 mg capsule See Rx Instructions .ROUTE .COMPLEX Qty: 450 1RF Rx Instructions: 300 mg orally at noon and 1200 mg at bedtime. ezetimibe [Zetia] 10 mg tablet 10 mg PO DAILY Qty: 90 1RF (DME) pen needle, diabetic 33 gauge x 5/32 needle See Rx Instructions .ROUTE .MEDSUPPLY Qty: 300 5RF Rx Instructions: 2 times day Lantus Solostar U-100 Insulin 100 unit/mL (3 mL) insulin pen See Rx Instructions SUBCUT .COMPLEX Qty: 90 1RF Hold Instructions: Glucose improved Rx Instructions: 15 units up to 25 Units subcutaneously daily; Vitamin B-12 50 mcg Tablet 50 mcg PO DAILY Discontinued pantoprazole 20 mg tablet,delayed release (DR/EC) 20 mg PO DAILY Qty: 90 1RF No Action cilostazol 50 mg tablet 50 mg PO BID Qty: 180 1RF Discharge Orders: Discharge Order (Routine); Ordered 01/29/24 Ordered By: Travis Hollingsworth Referrals: John Rouse FNP-C [Primary Care Provider] - 7-10 days (please call John Rouse's Office on Friday or Friday at [phone] to schedule a follow up appointment. Thank you.) Discharge Diet: Advance as tolerated and GI Soft Discharge Activity: Resume usual activity and Increase activity as tolerated Patient Instructions: Anemia, Gastrointestinal Bleeding (DC), GI Post Discharge Instructions w/ Anesthesia, Opioid Safety Activity Restrictions/Additional Instructions: Repeat hemoglobin in 1 week Hold Cilastozol for 2 weeks Take protonix 40 mg twice daily for 4 weeks, then daily. Take carafate 4 times a day or 1 month Follow up with gastroentrology for further management Soft diet for 1 week, then advance gradually Please abstain from alcohol use. Discharge Attestations Time Spent in Discharge Care*: greater than 30 min Specific Discharge Activities: educating patient, educating and/or supporting family/caregiver, discussing with pcp/other providers, discussing with social work case manager/social workers/dc planners, documenting/other paperwork and evaluating patient/reviewing data Status at Discharge: Cognitive status at discharge: cognitively intact , Behavioral status at discharge: cooperative , Functional status at discharge: independent ambulation , Overall status at discharge: patient is back to baseline Quality Metrics Clinical Quality Measures [ No reported AMI, CVA or VTE this stay] Coding Level of Care Code 39652 Total time (in minutes) for Discharge: 60 Diagnoses Alcohol abuse, daily use F10.10 Acute anemia D64.9 GI bleed K92.2
--- NOTE | 2024-01-29 13:41 | PC.NURSE ---
All DC instructions educated to patient and , iv dc, transported home by
== END 2024-01-29 13:44 | disposition home or self-care (01) | DRG 378 ==
LOC: ER 16:20 → ICU 16:47
PROVIDERS: Student in an Organized Health Care Education/Training Program; Surgery; Admitting Provider Student in an Organized Health Care Education/Training Program; Emergency Provider Emergency Medicine; PCP Nurse Practitioner; Visit Provider Student in an Organized Health Care Education/Training Program
PROC: 0DJ08ZZ Inspection of Upper Intestinal Tract, Via Natural or Artificial Opening Endoscopic (ICD-10-PCS; CPT 43235; principal; 2024-01-29 08:00)
DX: K31.811 Angiodysplasia of stomach and duodenum with bleeding (principal); D62 Acute posthemorrhagic anemia; F10.10 Alcohol abuse, uncomplicated; E11.51 Type 2 diabetes mellitus with diabetic peripheral angiopathy without gangrene; E11.65 Type 2 diabetes mellitus with hyperglycemia; K21.9 Gastro-esophageal reflux disease without esophagitis; E78.2 Mixed hyperlipidemia; Z79.85 Long-term (current) use of injectable non-insulin antidiabetic drugs; Z79.84 Long term (current) use of oral hypoglycemic drugs; Z79.4 Long term (current) use of insulin
CPT/HCPCS: 36415; 36416; 36430; 71045; 74177; 80053; 80307; 81001; 82746; 82962; 83540; 83550; 83605; 83735; 84100; 84145; 84443; 85025; 85610; 86850; 86900; 86920; 93005; 94664; 96372; 99285; J0330; J2405; J2470; J2704; J3411; J7030; P9016

== ENCOUNTER → 2024-02-10 12:08 | Outpatient (BNVA) | payer OTHER, MEDICARE, SELFPAY | PROVIDERS: PCP Nurse Practitioner; Visit Provider Nurse Practitioner | DX: K92.2 Gastrointestinal hemorrhage, unspecified (principal) | CPT/HCPCS: 80053; 81000; 85025 ==

== ENCOUNTER → 2024-02-23 10:30 | Outpatient (BNVA) | payer OTHER, MEDICARE, SELFPAY | PROVIDERS: PCP Nurse Practitioner; Visit Provider Nurse Practitioner | DX: E11.65 Type 2 diabetes mellitus with hyperglycemia (principal); Z79.4 Long term (current) use of insulin | CPT/HCPCS: 80053; 81000; 85025 ==

== ENCOUNTER → 2024-03-10 11:07 | Outpatient (BNVA) | payer MEDICARE, SELFPAY | PROVIDERS: PCP Nurse Practitioner; Visit Provider Nurse Practitioner | DX: E11.65 Type 2 diabetes mellitus with hyperglycemia; Z79.4 Long term (current) use of insulin | CPT/HCPCS: 80048; 83735; 85025 ==

== ENCOUNTER 2024-04-13 09:33 | Emergency (ER) | payer MEDICARE, SELFPAY ==
[2024-04-13 09:38] VITALS: BP 100/57; PULSE 116; TEMP 37.1; O2SAT 100; BMI 22.4
--- NOTE | 2024-04-13 09:47 | W.ED.LOWEXIN ---
HPI - Extremity Injury (Lower) General: Chief Complaint: Extremity Injury, Lower Stated Complaint: rt ankle inj Time Seen by Provider: 04/13/24 09:34 Source: patient Mode of arrival: ambulatory Limitations: no limitations History of Present Illness: Patient is a 63-year-old male who presents to ED today presumedly with his significant other here with 2 separate complaints. First of all he is complaining of pain to the medial aspect of his right ankle after accidentally tripping over his cat while on a flight of stairs yesterday. Denies any other injury sustained during the fall. Patient states he is not able to bear weight due to pain in the right ankle. He has not noticed any significant swelling to the joint. He has a separate complaint of a productive cough starting yesterday. Denies fevers, chills, body aches. Does not complain of chest pain/dyspnea. MD complaint: ankle injury Injury: Right: ankle Place: home Severity: moderate Relieving factors: immobilization Exacerbating factors: weight bearing, movement and palpation Associated symptoms: Reports inability to bear weight Other symptoms: none Related Data Home Medications ?Medication ?Instructions ?Recorded ?Confirmed ascorbate calcium (vitamin C) 500 500 mg PO DAILY 06/30/20 03/10/24 mg tablet magnesium oxide 250 mg PO DAILY 10/11/20 03/10/24 thiamine HCl (vitamin B1) 100 mg 100 mg PO DAILY 10/14/20 03/10/24 tablet (Vitamin B-1) cholecalciferol (vitamin D3) 10 10 mcg PO DAILY 04/23/22 03/10/24 mcg (400 unit) capsule krill oil 500 mg capsule 500 mg PO DAILY 04/23/22 03/10/24 omega 8-kdm-ind-fish oil 300 1 cap PO DAILY 04/23/22 03/10/24 mg-1,000 mg capsule (Fish Oil) ferrous sulfate 325 mg (65 mg 325 mg PO DAILY 07/10/22 03/10/24 iron) tablet cyanocobalamin (vitamin B-12) 50 50 mcg PO DAILY 02/03/23 03/10/24 mcg tablet (Vitamin B-12) Previous Rx's ?Medication ?Instructions ?Recorded pen needle, diabetic 33 gauge x #300 ea 01/28/22 cilostazol 50 mg tablet 50 mg PO BID #180 tabs 09/16/23 Held on 03/10/24. Instructions: GI bleeding atorvastatin 20 mg tablet 20 mg PO DAILY #90 tabs 03/10/24 empagliflozin 25 mg tablet 25 mg PO QAM #90 tabs 03/10/24 (Jardiance) evolocumab 140 mg/mL subcutaneous 140 mg SUBCUT .every 14 days #6 mL 03/10/24 syringe (Repatha Syringe) ezetimibe 10 mg tablet (Zetia) 10 mg PO DAILY #90 tabs 03/10/24 insulin glargine 100 unit/mL (3 See Rx Instructions SUBCUT 03/10/24 mL) subcutaneous pen (Lantus .COMPLEX #90 mL Solostar U-100 Insulin) pantoprazole 40 mg tablet,delayed 40 mg PO DAILY #90 tabs 03/10/24 release (Protonix) pregabalin 100 mg capsule (Lyrica) 100 mg PO BID #180 caps 03/10/24 semaglutide 1 mg/dose (4 mg/3 mL) 1 mg (0.75 mL) SUBCUT .weekly #9 mL 03/10/24 subcutaneous pen injector (Ozempic) RSV vac, preF A and preF B(PF) 120 0.5 ml IM ONCE #1 ea 03/14/24 mcg/0.5 mL IM solution (Abrysvo (PF)) venlafaxine 75 mg capsule,extended 75 mg PO QAM #90 caps 04/07/24 release 24 hr (Effexor XR) sucralfate 1 gram tablet 1 g PO .COMPLEX #360 tabs 04/08/24 Allergies Allergy/AdvReac Type Severity Reaction Status Date / Time metformin Allergy Mild STOMACH Verified 04/13/24 09:45 varenicline (From Chantix) Allergy Mild BAD DREAMS Verified 04/13/24 09:45 Review of Systems Const: Denies: fever(s), chills, body aches, fatigue or malaise ENMT: Denies: throat pain, odynophagia, ear or mastoid pain, nasal discharge, nasal congestion or sinus pain Card: Denies: chest pain, palpitations, irregular heart rhythm, edema, lightheadedness, syncope or pre-syncope Resp: Reports: productive cough and chest congestion; Denies: dyspnea, wheezing, stridor, pain on inspiration or hemoptysis GI: Denies: abdominal pain, nausea, vomiting or diarrhea Musc: Reports: joint pain (R ankle pain); Denies: neck pain, back pain, extremity pain, extremity swelling or joint swelling Neuro: Denies: headache(s), numbness in extremities, weakness in extremities or sensory changes PFSH ED PFSH: Medical History Cerebellar atrophy PAD (peripheral artery disease) Mild acid reflux Neuropathic pain Hyperlipidemia, mixed Alcohol abuse, daily use Johan Abraham's stop January, Use of cane as ambulatory aid Surgical History S/P femoral-popliteal bypass surgery History of colonoscopy May 2022 negative History of tonsillectomy age 6 History of hand fracture Right 5th finger pin History of femoral angiogram History of amputation Left 4th toe Family History Other Diabetes Denies family history of Dementia Chronic kidney disease (CKD) Anesthesia complication Bleeding disorder Lung disease Cancer Hypertension Stroke Social History Smoking and tobacco/nicotine status: former use of tobacco/nicotine Second hand smoke exposure: No Alcohol intake: current Alcohol intake frequency: 0-2 Drinks per Day Alcohol type: hard liquor Substance/Drug Use: unknown Adopted: No Caregiver/support person: No Lives independently: Yes Household members: spouse Housing: House Marital status: Number of children: 0 service: Yes branch: [employer] Current occupational status: retired Pets and animals: Yes Pets & animals: cat(s) Do you think of yourself as: Straight/Heterosexual Current gender identity: Male Physical Exam Const: COMMON NORMALS: no acute distress, average body habitus, patient oriented x3, no limitations, healthy appearing, alert and well nourished GENERAL APPEARANCE: cooperative ORIENTATION/CONSCIOUSNESS: Yes awake, Yes oriented to person and Yes oriented to time HENMT: COMMON NORMALS: normocephalic and atraumatic HEAD & SCALP: normal to inspection, normocephalic and atraumatic Neck/C-Spine: COMMON NORMALS: full ROM CERVICAL SPINE: No Cervical spine tenderness and No Paracervical muscle tenderness Chest: COMMONS NORMALS: normal inspection of the chest and normal palpation of entire chest wall Resp: COMMON NORMALS: normal respiratory effort and clear to auscultation bilaterally AUSCULTATION: clear to auscultation bilaterally Cardio: COMMON NORMALS: regular rhythm RATE: tachycardic RHYTHM: regular rhythm Back/Pelvis: COMMON NORMALS: thoracic and lumbar spine normal to inspection Extremity: COMMON NORMALS: capillary refill normal, no clubbing, cyanosis or edema, no calf tenderness and no pedal edema GENERAL: Yes normal exam except as noted RIGHT LOWER EXTREMITY: Yes foot & digits (TTP medial R ankle; no deformity; no edema) Right ankle: Yes neurovascular exam (normal) Neuro: COMMON NORMALS: patient oriented x3, moves all extremities, no focal motor deficits and no sensory deficits noted SENSORIUM/ORIENTATION: Yes alert, Yes oriented to person and Yes oriented to time Skin: COMMON NORMALS: no rashes or lesions noted GENERAL SKIN EXAM: no rashes or lesions noted Course Vital Signs: Vital signs: Vital Signs Temperature 98.8 F 04/13/24 09:38 Pulse Rate 116 H 04/13/24 09:38 Blood Pressure 100/57 04/13/24 09:38 Pulse Oximetry 100 04/13/24 09:38 Oxygen Delivery Me thod Room Air 04/13/24 09:38 MDM - Extremity Injury (Lower) Medical Decision Making CXR is unremarkable. COVID/influenza/RSV pending. He will be called with any positive results. Right ankle XR showing avulsion fragments near his medial malleolus where he is tender clinically. Will splint him and have him follow-up with orthopedics. Lab Data Radiology Impressions Ankle X-Ray 04/13/24 09:55 IMPRESSION: Findings indicative of small ligamentous avulsion injury of the medial malleolus/talus of unknown chronicity. Correlation with laterality of pain Chest X-Ray 04/13/24 09:55 IMPRESSION: Stable chest without acute abnormality. All radiology interpretation(s) finalized by discharge Discharge Plan Discharge Patient Disposition: Home Clinical Impression: Viral upper respiratory tract infection with cough, Avulsion fracture of right ankle Condition: Stable Prescriptions: No Action magnesium oxide 250 mg magnesium tablet 250 mg PO DAILY thiamine HCl (vitamin B1) [Vitamin B-1] 100 mg tablet 100 mg PO DAILY ascorbate calcium (vitamin C) 500 mg tablet 500 mg PO DAILY cholecalciferol (vitamin D3) 10 mcg (400 unit) capsule 10 mcg PO DAILY omega 8-pcg-fiq-fish oil [Fish Oil] 300-1,000 mg capsule 1 cap PO DAILY krill oil 500 mg capsule 500 mg PO DAILY ferrous sulfate 325 mg (65 mg iron) tablet 325 mg PO DAILY cilostazol 50 mg tablet 50 mg PO BID Qty: 180 1RF atorvastatin 20 mg tablet 20 mg PO DAILY Qty: 90 1RF Jardiance 25 mg tablet 25 mg PO QAM Qty: 90 1RF Repatha Syringe 140 mg/mL syringe 140 mg SUBCUT .every 14 days Qty: 6 0RF ezetimibe [Zetia] 10 mg tablet 10 mg PO DAILY Qty: 90 1RF Lantus Solostar U-100 Insulin 100 unit/mL (3 mL) insulin pen See Rx Instructions SUBCUT .COMPLEX Qty: 90 1RF Rx Instructions: 15 units up to 25 Units subcutaneously daily; Ozempic 1 mg/dose (4 mg/3 mL) pen injector 1 mg SUBCUT .weekly Qty: 9 1RF Rx Instructions: on Friday pregabalin [Lyrica] 100 mg capsule 100 mg PO BID Qty: 180 0RF pantoprazole [Protonix] 40 mg tablet,delayed release (DR/EC) 40 mg PO DAILY Qty: 90 0RF (DME) pen needle, diabetic 33 gauge x 5/32 needle See Rx Instructions .ROUTE .MEDSUPPLY Qty: 300 5RF Rx Instructions: 2 times day Abrysvo (PF) 120 mcg/0.5 mL recon soln 0.5 ml IM ONCE Qty: 1 0RF venlafaxine [Effexor XR] 75 mg capsule,extended release 24hr 75 mg PO QAM Qty: 90 0RF sucralfate 1 gram tablet 1 g PO .COMPLEX Qty: 360 0RF Rx Instructions: 1 g orally before meals and bedtime; Vitamin B-12 50 mcg Tablet 50 mcg PO DAILY Discharge Orders: Discharge ED (Routine); Ordered 04/13/24 Ordered By: Kendal Mehta Referrals: John Rouse, ALEXIS-C [Primary Care Provider] - Patient Instructions: Ankle Fracture (DC), Upper Respiratory Infection (DC) Activity Restrictions/Additional Instructions: As we discussed, case management should reach out to you shortly to help set you up with your follow-up appointment with orthopedics for further evaluation of your right ankle injury. Your chest x-ray here was unremarkable. You will be contacted with any positive results regarding your COVID/flu/RSV swab. We discussed conservative therapies to help with cough and congestion. Print Language: Yakut Coding Level of Care Code ED [employer]ulic [employer] Servicer for Mahesh Rutherford
--- NOTE | 2024-04-13 09:55 | XR_ITS ---
WS: [id number] XR ankle RT min 3V* [id number] REASON FOR EXAM: injury/pain FINDINGS: Soft tissue swelling over both malleoli. Tiny bone fragments adjacent to the talus and interposed between the talus and the apex of the medial malleolus. The joint spaces are intact and well preserved. XR/XR ankle RT min 3V* [id number] IMPRESSION: Findings indicative of small ligamentous avulsion injury of the medial malleolu s/talus of unknown chronicity. Correlation with laterality of pain
--- NOTE | 2024-04-13 09:55 | XR_ITS ---
WS: [id number] XR chest 1V portable [id number] REASON FOR EXAM: cough/congestion FINDINGS: The chest appears unchanged compared to 01/28/2024. Mild ectasia and tortuosity of the thoracic aorta with normal heart size. Calcified granulomas disease bilaterally. No acute pulmonary parenchymal or pleural abnormality. Bilateral old healed rib fractures. Moderate degenerative spondylosis in the thoracic spine. XR/XR chest 1V portable [id number] IMPRESSION: Stable chest without acute abnormality.
[2024-04-13 10:49] LABS: Covid PCR NEGATIVE (Negative); Influenza A POSITIVE (Negative); Influenza B NEGATIVE (Negative); Respiratory Syncytial Virus Ce NEGATIVE (Negative)
== END 2024-04-13 11:05 | disposition home or self-care (01) ==
PROVIDERS: Emergency Provider Physician Assistant; PCP Nurse Practitioner
DX: S82.891A Other fracture of right lower leg, initial encounter for closed fracture (principal); J10.1 Influenza due to other identified influenza virus with other respiratory manifestations; Z87.891 Personal history of nicotine dependence; E78.5 Hyperlipidemia, unspecified; W01.0XXA Fall on same level from slipping, tripping and stumbling without subsequent striking against object, initial encounter
CPT/HCPCS: 29515; 71045; 73610; 87637; 99284

== ENCOUNTER → 2024-04-26 08:42 | Outpatient (BNVA) | payer MEDICARE, SELFPAY | PROVIDERS: PCP Nurse Practitioner; Visit Provider Psychiatry & Neurology Neurology | DX: I63.9 Cerebral infarction, unspecified (principal); G31.9 Degenerative disease of nervous system, unspecified; I73.9 Peripheral vascular disease, unspecified; G11.9 Hereditary ataxia, unspecified | CPT/HCPCS: 73610; 99203 ==

== ENCOUNTER 2024-04-26 10:58 | Outpatient (CLI) | payer MEDICARE, SELFPAY | END 2024-04-26 10:59 | disposition home or self-care (01) | LOC: SPT 10:59 | PROVIDERS: PCP Nurse Practitioner; Visit Provider Podiatrist Foot & Ankle Surgery | DX: E11.8 Type 2 diabetes mellitus with unspecified complications (principal); L60.8 Other nail disorders; Z46.89 Encounter for fitting and adjustment of other specified devices; L60.3 Nail dystrophy; I73.9 Peripheral vascular disease, unspecified; M21.622 Bunionette of left foot; M21.621 Bunionette of right foot; M20.41 Other hammer toe(s) (acquired), right foot; M20.42 Other hammer toe(s) (acquired), left foot; E11.42 Type 2 diabetes mellitus with diabetic polyneuropathy; S93.421A Sprain of deltoid ligament of right ankle, initial encounter; Z79.4 Long term (current) use of insulin; W01.0XXA Fall on same level from slipping, tripping and stumbling without subsequent striking against object, initial encounter | CPT/HCPCS: 11721; 97760; 99213; L1902 ==

== ENCOUNTER 2024-05-01 06:00 | Outpatient (RCR) | payer MEDICARE, SELFPAY | END 2024-05-31 23:59 | disposition home or self-care (01) | LOC: APT 06:00 | PROVIDERS: PCP Psychiatry & Neurology Neurology; Visit Provider Podiatrist Foot & Ankle Surgery | DX: S93.401D Sprain of unspecified ligament of right ankle, subsequent encounter (principal); S93.402D Sprain of unspecified ligament of left ankle, subsequent encounter; X58.XXXD Exposure to other specified factors, subsequent encounter | CPT/HCPCS: 97163 ==

== ENCOUNTER → 2024-05-10 13:07 | Outpatient (BNVA) | payer MEDICARE, SELFPAY | PROVIDERS: PCP Nurse Practitioner; Visit Provider Internal Medicine | DX: Z01.818 Encounter for other preprocedural examination (principal); D64.9 Anemia, unspecified; I73.9 Peripheral vascular disease, unspecified; Z87.891 Personal history of nicotine dependence | CPT/HCPCS: 99214 ==

== ENCOUNTER 2024-05-13 10:53 | Outpatient (CLI) | payer MEDICARE, SELFPAY ==
--- NOTE | 2024-05-13 11:00 | MR_ITS ---
WS: [id number] MRI HEAD WITH CONTRAST TECHNIQUE: Sagittal T1, T2 axial, T2 axial FLAIR, axial susceptibility weighted imaging, axial diffusion weighted images, and coronal T2 images were obtained. Pre and post-T1 axial and post T1 coronal images. ADC and FSPGR images. CLINICAL INFORMATION: I63.9 - Cerebral infarction, unspecified FINDINGS: Some images are degraded by patient motion at the skull base No evidence of restricted diffusion to suggest acute ischemia. Ventricular system and basilar cisterns are patent mild small vessel changes. Moderate parenchymal volume loss. Advanced parenchymal volume loss in the cerebellum bilaterally with atrophy of the brainstem. This is similar to the prior CT. D ifferential considerations are unchanged. Small vessel changes in the kyle. Normal vascular flow voids at the skull base. No extra-axial fluid collections. Paranasal sinuses and mastoid air cells are well aerated. No hemosiderin on the susceptibility weighted images. Moderate symmetric atrophy temporal lobes hippocampal formations. Normal optic chiasm and pituitary infundibulum. Normal dural venous sinuses. Incidental faint venous angioma LEFT frontal lobe MR/MR head wo/w con [id number] IMPRESSION: 1. No evidence of restricted diffusion to suggest acute ischemia. 2. No abnormal gadolinium enhancement. 3. Mild small vessel changes with moderate parenchymal volume loss. 4. Chronic infarct LEFT parietal lobe with a small amount of encephalomalacia and gliosis. 5. Advanced atrophy cerebellum and vermis similar to the prior CT. Differentia l considerations are unchanged and include most commonly alcoholic encephalopat hy and Dilantin use. In addition neurodegenerative disease such as olivopontoce rebellar degeneration and and similar variants are an additional consideration with atrophy of the brainstem.
--- NOTE | 2024-05-13 11:45 | MR_ITS ---
WS: [id number] MRA CAROTID WITHOUT AND WITH GADOLINIUM ENHANCEMENT TECHNIQUE: Axial 2-D TOF and gadolinium bolus images obtained with axial images and axial, sagittal, and coronal 2-D reformatted images. CLINICAL INFORMATION: G31.9 - Degenerative disease of nervous system, unspecified COMPARISON: None. FINDINGS: Images degraded by motion RIGHT: RIGHT common carotid artery is patent. No significant RIGHT ICA stenosis. Mild carotid bulb calcification. RIGHT ICA is patent to the skull base. LEFT: LEFT common carotid artery is patent. Moderate atheromatous plaque LEFT carotid bulb extending into the ICA. Less than 50% LEFT ICA stenosis. LEFT ICA is patent to the skull base. LEFT dominant vertebral artery. Smaller but patent RIGHT vertebral artery which ends in PICA. Proximal subclavian arteries are patent. Bovine arch configuration. MR/MR angio neck w con* [id number] IMPRESSION: 1. Irregular atheromatous plaque LEFT carotid bulb extending into the ICA with less than 50% stenosis. 2. No significant RIGHT ICA stenosis. 3. LEFT dominant vertebral artery. RIGHT vertebral artery ends in PICA.
[2024-05-13] MEDS: gadobenate dimeglumine 20 mL vial 13 ML IV (12:21)
--- NOTE | 2024-05-13 12:30 | MR_ITS ---
WS: [id number] MRA HEAD TECHNIQUE: Axial 3-D TOF images obtained with axial images and axial, sagittal, and coronal 2-D reformatted images. CLINICAL INFORMATION: G31.9 - Degenerative disease of nervous system, unspecified COMPARISON: None. FINDINGS: Dominant distal LEFT vertebral artery. Basilar artery is patent. Normal vascularity to the [employer] territory bilaterally. Both ICAs are patent at the skull base. Moderate narrowing of the RIGHT carotid siphon. Normal vascularity to the CARLOS territory. Normal vascularity to the MCA territories bilaterally. Moderate smooth tapered narrowing of the LEFT distal petrous and proximal cavernous segment MR/MR angio head wo con [id number] IMPRESSION: 1. Mild intracranial atheromatous disease 2. Moderate approximately 50% narrowing of the RIGHT carotid siphon with persi stent flow. 3. Moderate narrowing of the LEFT distal petrous and proximal cavernous segmen t.
== END 2024-05-13 10:54 | disposition home or self-care (01) ==
PROVIDERS: PCP Nurse Practitioner; Visit Provider Psychiatry & Neurology Neurology
DX: G31.89 Other specified degenerative diseases of nervous system (principal); I63.9 Cerebral infarction, unspecified; I67.2 Cerebral atherosclerosis; I65.23 Occlusion and stenosis of bilateral carotid arteries
CPT/HCPCS: 70544; 70548; 70553

== ENCOUNTER 2024-05-27 08:48 | Outpatient (CLI) | payer MEDICARE, SELFPAY ==
[2024-05-27 09:10] VITALS: BMI 21.9
--- NOTE | 2024-05-27 09:14 | ECG_ITS ---
[facility]24[facility]27 Pat Name: Terrence Mayfield Department: Room: Gender: Male Web Consultant: : 1960 Requested By: Surendra Tabares Order Number: [id number] Dinora MD: ROSA TEE Interpretive Statements Lung unchanged pre/post procedure; Intraprocedure shortess of breath; Symptoms resoled by discharge NOTE: Please note that this is the electrocardiogram portion of the Lexiscan/Sestamibi stress test. The perfusion scan will be documented separately. DATA: Baseline heart rate was 95 beats per minute. Baseline blood pressure was 112/65 millimeters of mercury. Target heart rate was 156. Maximum heart rate achieved was 108. which was 69 % of the predicted target heart rate. Maximum blood pressure was 127/65 millimeters of mercury. The reason for ending the test was completion of the protocol. The patient did not experience any symptoms. ELECTROCARDIOGRAM: BASELINE: Sinus rhythm. Normal axis. Otherwise, inferolateral nonspecific ST-T changes noted. no arrhythmia noted. EXERCISE: After Lexiscan injection, no significant more than what is present at the baseline ST-T changes suggestive of ischemic noted. No arrhythmia noted. CONCLUSION: Please note due to baseline abnormality of the EKG specificity and sensitivity of the EKG portion of LexiScan MIBI stress test will be low 1. EKG not suggestive of ischemia 2. Lexiscan injection unremarkable. 3. Perfusion scan will be documented separately. Electronically Signed On 06-14-2024 20:05:44 CDT by ROSA TEE [email or web address]
--- NOTE | 2024-05-27 09:15 | NMCV_ITS ---
NM aga perf SPECT r/s* [id number] Tran Terrence Age: 63 Gender: M : 1960 Exam Date: 05/27/2024 09:56 Ordering Phys: Surendra Tabares M.D ([email or web address]) Technologist: JOSE Chan Exam Location: [facility] Indications: cp STRESS TEST Please [facility] for [facility] IMAGE PROTOCOL Rest/Stress 1 Lexiscan Day Radiopharmaceutical Dose (mCi) Administration Site Administered by Rest: Tc-99m 10.4 IV JOSE Chan Sestamibi Stress:Tc-99m 32.9 IV Diane Serna, RECYCLING TECH Sestamibi Rest: 27-May-2024 60 Discovery 630 Stress: 27-May-2024 30 Discovery 630 0.4mg Lexiscan. Supine position only as patient was unable to lay prone. SPECT RESULTS Technical Quality: Good Raw Data Analysis: Normal Image Corrections: No attenuation or motion correction applied Summed Stress Score: 10 Summed Rest Score: 4 Summed Difference Score: 6 PERFUSION FINDINGS There is a medium to large area of partially reversible perfusion defect seen in inferior wall. This is consistent with medium to large area of prior infarct with significant kg-infarct ischemia in RCA territory. Prone imaging not performed. FUNCTIONAL RESULTS (calculated via Gated SPECT) Stress Image LV EF (%): 56 Stress EDV (mL):86 TID: 1.1 Stress ESV (mL):38 FUNCTIONAL FINDINGS: There is normal left ventricular systolic function. IMPRESSIONS 1. Abnormal myocardial perfusion imaging with medium to large area of prior infarct with significant kg-infarct ischemia in RCA territory. However prone imaging not performed that reduces specificity of the test. Clinical correlation is recommended. 2. LV systolic function is normal Surendra Tabares MD (Electronically Signed) Final Date: 27 May 2024 12:26 S
--- NOTE | 2024-05-27 09:16 | SUR.PREOP ---
FALL RISK Notified by patient's that he has fell at home recently and is requesting a fall risk bracelet. I complied with the request and have her the arm band as he is fall risk by my assessment. I did tell her that he is going to be in the waiting room for the vast majority of the exam today and he she would need to set with him if he was going to get up on his own. She stated that he would not do that. The only risk was during transfers while in the department. She verbalized understanding that he would be in waiting room during the biggest portion of todays testing.
[2024-05-27] MEDS: regadenoson 0.4 Mg/5 ml Syringe IVP (10:24)
[2024-05-27 10:35] VITALS: BP 101/54; PULSE 98
--- NOTE | 2024-05-27 13:30 | USCV_ITS ---
Terrence Mayfield Age: 63 Gender: M : 1960 Exam Date: 05/27/2024 09:43 Ordering Phys: Surendra Tabares M.D ([email or web address]) Technologist: Exam Location: [facility] [place] Indication: cp BP: 132 / 82 HR: 99 Rhythm: Sinus Technical Quality: Adequate MEASUREMENTS (Male / Female) Normal Values 2D ECHO LV Diastolic Diameter PLAX 3.7 cm 4.2 - 5.9 / 3.9 - 5.3 cm IVS Diastolic Thickness 1.2 cm 0.6 - 1.0 / 0.6 - 0.9 cm IVS Systolic Thickness 1.4 cm LVPW Diastolic Thickness 1.3 cm 0.6 - 1.0 / 0.6 - 0.9 cm LVPW Systolic Thickness 1.4 cm LVOT Diameter 2.0 cm LV Ejection Fraction 2D Teich 57.1 % LV Ejection Fraction MOD 4C 51.7 % LV Ejection Fraction MOD 2C 63.0 % LV Ejection Fraction 2C AL 62.7 % LA Diameter 3.6 cm RA Systolic Volume 4C AL 17.0 ml RA Systolic Volume 4C MOD 15.9 ml Aorta at Sinotubular Diameter 2.8 cm M-MODE LA Ao Ratio MM 1.2 MV E Point Septal Separation 1.9 cm AV Cusp Separation MM 2.0 cm DOPPLER AV Peak Velocity 162.0 cm/s LVOT Peak Velocity 116.0 cm/s AV Area Cont Eq vti 2.7 cm squared AV Area Cont Eq pk 2.3 cm squared MV Area PHT 5.6 cm squared Mitral E to A Ratio 0.8 TR Peak Velocity 176.0 cm/s TR Peak Gradient 12.4 mmHg TV Peak E Velocity 90.0 cm/s PV Peak Velocity 111.0 cm/s FINDINGS Left Ventricle Technically limited quality echocardiogram because of poor ultrasonic windows. LV systolic function is normal with EF 55- 60%. No regional wall motion abnormalities are seen. Grade 1 diastolic dysfunction. Right Ventricle Normal in size and function Right Atrium Normal in size Left Atrium Normal in size Mitral Valve Moderate mitral annular calcification. Aortic Valve Grossly normal. No significant stenosis or regurgitation. Tricuspid Valve Insufficient TR jet to calculate RVSP Pulmonic Valve Not well visualized Pericardium Normal Aorta Normal in size IVC Not visualized CONCLUSIONS LV systolic function is normal with EF of 55-60% Grade 1 diastolic dysfunction No comparison studies are available. Surendra Tabares MD (Electronically Signed) Final Date: 08 June 2024 12:44 S
== END 2024-05-27 08:49 | disposition home or self-care (01) ==
PROVIDERS: PCP Psychiatry & Neurology Neurology; Visit Provider Internal Medicine
DX: R06.02 Shortness of breath (principal); M19.071 Primary osteoarthritis, right ankle and foot; I70.8 Atherosclerosis of other arteries; R93.1 Abnormal findings on diagnostic imaging of heart and coronary circulation; I34.81 Nonrheumatic mitral (valve) annulus calcification; S93.421A Sprain of deltoid ligament of right ankle, initial encounter; X58.XXXA Exposure to other specified factors, initial encounter; M25.572 Pain in left ankle and joints of left foot; M79.671 Pain in right foot; M25.571 Pain in right ankle and joints of right foot; I73.9 Peripheral vascular disease, unspecified; E11.42 Type 2 diabetes mellitus with diabetic polyneuropathy; Z79.4 Long term (current) use of insulin
CPT/HCPCS: 36415; 73610; 73630; 78452; 93017; 93306; 96374; 99214; A9500; J2785

== ENCOUNTER 2024-06-01 14:05 | Outpatient (CLI) | payer MEDICARE, SELFPAY ==
--- NOTE | 2024-06-01 14:15 | CTR_ITS ---
PROCEDURE INFORMATION: Exam: CTA Abdominal Aorta and Bilateral Lower Extremities (Run-off) With Contrast Exam date and time: 06/01/2024 2:43 PM Age: 63 years old Clinical indication: Condition or disease; Peripheral vascular disease; Prior surgery; Surgery date: 6+ months; Surgery type: Left fem pop; Right leg pain, pvd TECHNIQUE: Imaging protocol: Computed tomographic angiography of the of the abdominal aorta, pelvis and bilateral lower extremities with contrast. 3D rendering (Not supervised by radiologist): MIP and/or 3D reconstructed images were created by the technologist. Radiation optimization: All CT scans at this facility use at least one of these dose optimization techniques: automated exposure control; mA and/or kV adjustment per patient size (includes targeted exams where dose is matched to clinical indication); or iterative reconstruction. Contrast material: OMNIPAQUE 350; Contrast volume: 125 ml; Contrast route: INTRAVENOUS (IV); COMPARISON: CT angio abd aorta runof [id number] 05/14/2022 1:34 PM RADIATION DOSE METRICS: Total DLP (mGy-cm): 1432.89 FINDINGS: Aorta: No aortic aneurysm. No aortic dissection. Diffuse aortic intimal calcification. Celiac trunk and mesenteric arteries: Significant calcified plaque in the proximal superior mesenteric artery and origin with moderate eccentric stenosis of the SMA. Renal arteries: Eccentric calcified plaque in the proximal right main renal artery without definite significant stenosis. An accessory right renal artery is noted. Right iliac arteries: No occlusion or significant stenosis. Diffuse intimal calcification of the common iliac artery. Significant calcified plaque of the right common femoral artery with high-grade stenosis. Right femoral/popliteal arteries: Multifocal moderate to high-grade stenosis of the right femoral artery due to calcified plaque. Contrast within the lumen of the vessel is sometimes the visualized with focal occlusion difficult to exclude. Right infrapopliteal arteries: No definite occlusion but with diffuse vascular calcifications. Left iliac arteries: No occlusion or significant stenosis. Left femoral/popliteal arteries: There is a femoropopliteal graft or bypass with suggestion of moderate to high-grade stenosis just beyond the origin of the graft. Beyond this the vessel is patent without significant stenosis. The [place] left femoral artery is densely calcified with multifocal high-grade stenoses and multifocal occlusions. Left infrapopliteal arteries: No definite occlusion but with diffuse vascular calcifications. Liver: No mass. Gallbladder and biliary ducts: Unremarkable. No calcified stones. No ductal dilation. Pancreas: Unremarkable. No mass. No ductal dilation. Spleen: Normal. No splenomegaly. Adrenal glands: Normal. No mass. Kidneys and ureters: Normal. No mass. Stomach and bowel: Unremarkable. No obstruction. No mucosal thickening. Appendix: No evidence of appendicitis. Urinary bladder: Unremarkable. No mass. Reproductive: Unremarkable as visualized. Intraperitoneal space: Unremarkable. No free air. No significant fluid collection. Lymph nodes: No lymphadenopathy. Bones/joints: Bilateral L5 pars defects. Soft tissues: Soft tissue densities/swelling seen along the anterior abdominal wall bilaterally. CT/CT angio abd aorta runof [id number] IMPRESSION: 1. Patent left femoropopliteal bypass graft with focal moderate to high-grade stenosis proximally. 2. High-grade stenosis of the right common femoral artery. Moderate to high-grade stenosis of the right femoral artery with focal occlusions difficult to exclude.
[2024-06-01 14:37] LABS: Blood Urea Nitrogen 11 mg/dL (8-23); Glomerular Filtration Rate 97.3 mL/min (90-130)
[2024-06-01] MEDS: iohexol 350 mg/mL 500 mL Btl (per mL) IV (14:55)
== END 2024-06-01 14:06 | disposition home or self-care (01) ==
PROVIDERS: PCP Psychiatry & Neurology Neurology; Visit Provider Internal Medicine
DX: I70.202 Unspecified atherosclerosis of native arteries of extremities, left leg (principal); I70.0 Atherosclerosis of aorta; K55.1 Chronic vascular disorders of intestine; I70.1 Atherosclerosis of renal artery; R93.89 Abnormal findings on diagnostic imaging of other specified body structures; I70.291 Other atherosclerosis of native arteries of extremities, right leg; Z95.828 Presence of other vascular implants and grafts; R93.7 Abnormal findings on diagnostic imaging of other parts of musculoskeletal system; M79.89 Other specified soft tissue disorders
CPT/HCPCS: 75635; 82565; 84520

== ENCOUNTER 2024-06-11 10:40 | Outpatient (CLI) | payer MEDICARE, SELFPAY ==
--- NOTE | 2024-06-11 11:00 | US_ITS ---
WS: [id number] RENAL ULTRASOUND HISTORY: R31.9 - Hematuria, unspecified COMPARISON: None available. TECHNIQUE: 2-D and color Doppler imaging of the kidney submitted. Right kidney: 10.7 cm x 4.3 cm x 4.7 cm. Cortex: 1.1 cm Normal echogenicity with no hydronephrosis or mass. Left kidney: 10.5 cm x 4.9 cm x 6.1 cm. Cortex: 1.2 cm Normal echogenicity with no hydronephrosis or mass. Aorta: Normal. Urinary Bladder: Normal distention. US/US renal BI* [id number] IMPRESSION: Normal renal ultrasound.
== END 2024-06-11 10:41 | disposition home or self-care (01) ==
PROVIDERS: PCP Nurse Practitioner; Visit Provider Nurse Practitioner
DX: R31.9 Hematuria, unspecified (principal)
CPT/HCPCS: 76770

== ENCOUNTER 2024-06-17 17:04 | Emergency (ER) | payer MEDICARE, SELFPAY ==
[2024-06-17] VITALS (60 sets, daily range): BP systolic 95–130; BP diastolic 57–89; PULSE 96–106; RESP 12–24; TEMP 36.5–37.2; O2SAT 84–100; BMI 22.4
[2024-06-17] MEDS: pantoprazole 40 mg SDV 80 MG IVP ×2 (18:01→20:32)
[2024-06-17 18:02] LABS: Basophils % 0.2 %; Eosinophils % 0.6 %; Lymphocytes # 0.4 10^3/uL (0.8-4.8); Lymphocytes % 7.5 %; Mean Corpuscular HGB Conc 26.3 g/dL (30-55); Mean Corpuscular Hemoglobin 17.5 pg (27-33); Mean Corpuscular Volume 66.3 fl (82-101); Mean Platelet Volume 9.9 fL (7.4-10.4); Monocytes # 0.7 10^3/uL (0.2-0.9); Monocytes % 13.4 %; Neutrophils # 3.81 10^3/uL (1.8-7.7); Neutrophils % 77.7 %; Nucleated Red Blood Cells # 0.1 /100WBC; Nucleated Red Blood Cells % 1.4 %; Platelet Count 169 10^3/cmm (157-399); Red Blood Count 2.52 10^6/uL (3.85-5.65); Red Cell Distribution Width 19.5 % (12.1-15.1); White Blood Count 4.91 10^3/uL (3.29-11.43)
[2024-06-17 18:18] LABS: Ammonia 14 umol/L (16-60)
[2024-06-17 18:19] LABS: INR 1.35 (0.8-1.2)
[2024-06-17 18:20] LABS: Alanine Aminotransferase 86 U/L (0-41); Albumin Level 3.7 g/dL (3.5-5.2); Alkaline Phosphatase 127 U/L (40-130); Anion Gap 16.6 (5-19); Aspartate Amino Transferase 76 U/L (0-40); Blood Urea Nitrogen 13 mg/dL (8-23); Calcium 8.3 mg/dL (8.5-10.5); Carbon Dioxide 24 mmol/L (22-29); Chloride 95 mmol/L (98-107); Creatinine Clr Calc Pharmacy 76.9448; Globulin 2.9 g/dL (1.3-4.6); Glucose 120 mg/dL (65-115); Osmolality Calculated 275 mOsm/kg (285-295); Partial Thromboplastin Time 35.4 SECONDS (23.9-36.7); Potassium 3.6 mmol/L (3.5-5.1); Sodium 132 mmol/L (136-145); Total Bilirubin 0.7 mg/dL (0.15-1.2); Total Protein 6.6 g/dL (6.6-8.7)
[2024-06-17 18:24] LABS: Alcohol Level < 10 mg/dL (0-10)
[2024-06-17 18:37] LABS: Hematocrit 16.7 % (37-53)
--- NOTE | 2024-06-17 19:13 | ED_ITS ---
HPI - Recheck/Abnormal Lab/Rx 2 General: Chief Complaint: Recheck/Abnormal Lab/Rx Stated Complaint: low hemoglobin Time Seen by Provider: 06/17/24 17:28 History of Present Illness: Patient is a generally-well appearing 63 yr old male who presents with a history of low blood levels. The patient reports experiencing symptoms such as feeling weak and crappy, but denies chest pain, light-headedness, shortness of breath, or feeling like passing out when getting up and down. The hemoglobin level is noted to be 4.4 today, which is significantly low, as anything under 7 typically requires a transfusion. The patient has had blood transfusions in the past due to leaks in the GI tract, rectum, urine, and around the nose. The patient is not on any blood thinner medications. The patient is agreeable to staying in the hospital for a day or two to receive treatment. Related Data Home Medications ?Medication ?Instructions ?Recorded ?Confirmed ascorbate calcium (vitamin C) 500 500 mg PO DAILY 06/0306/17/24 mg tablet magnesium oxide 250 mg PO DAILY 10/11/20 thiamine HCl (vitamin B1) 100 mg 100 mg PO DAILY 10/1406/17/24 tablet (Vitamin B-1) cholecalciferol (vitamin D3) 10 10 mcg PO DAILY 06/17/24 mcg (400 unit) capsule krill oil 500 mg capsule 500 mg PO DAILY 04/23/22 ferrous sulfate 325 mg (65 mg 325 mg PO DAILY 07/10/22 06/17/24 iron) tablet Held on 05/04/24. Instructions: Doctor's Order cyanocobalamin (vitamin B-12) 50 50 mcg PO DAILY 02/0306/17/24 mcg tablet (Vitamin B-12) salmon oil 1,000 mg-omega-3 fatty 1 cap PO DAILY 04/1306/17/24 acids 210 mg capsule Previous Rx's ?Medication ?Instructions ?Recorded pen needle, diabetic 33 gauge x #300 ea 01/28/22 cilostazol 50 mg tablet 50 mg PO BID #180 tabs 09/15 Held on 03/10/24. Instructions: GI bleeding semaglutide 1 mg/dose (4 mg/3 mL) 1 mg (0.75 mL) SUBCU T .weekly #9 mL 03/10/24 subcutaneous pen injector (Ozempic) supinator #1 ea 04/26/24 atorvastatin 20 mg tablet 20 mg PO DAILY #90 tabs 06/25 empagliflozin 25 mg tablet 25 mg PO QAM #90 tabs 05/04 (Jardiance) evolocumab 140 mg/mL subcutaneous 140 mg SUBCUT .every 14 days #6 mL 05/04/24 syringe (Repatha Syringe) ezetimibe 10 mg tablet (Zetia) 10 mg PO DAILY #90 tabs 05/04/24 insulin glargine 100 unit/mL (3 30 - 35 unit (0.3 - 0. 35 mL) 05/04/24 mL) subcutaneous pen (Lantus SUBCUT DAILY #15 mL Solostar U-100 Insulin) pantoprazole 40 mg tablet,delayed 40 mg PO DAILY #90 t abs 05/04/24 release (Protonix) pregabalin 100 mg capsule (Lyrica) 100 mg PO BID #180 caps 05/04/24 sucralfate 1 gram tablet 1 g PO QID #360 tabs 5 venlafaxine 75 mg capsule,extended 75 mg PO QAM #90 ca ps 05/04/24 release 24 hr (Effexor XR) Allergies Allergy/AdvReac Type Severity Reaction Status Date / Time metformin Allergy Mild STOMACH Verified 06/17/24 09:05 varenicline (From Chantix) Allergy Mild BAD DREAMS Verified 06/17/24 09:05 [facility] ED 2 [facility]: Medical History History of CVA with residual deficit Cerebellar atrophy PAD (peripheral artery disease) Mild acid reflux Neuropathic pain Hyperlipidemia, mixed Alcohol abuse, daily use Johan Rosario's stop January, Use of cane as ambulatory aid Surgical History S/P femoral-popliteal bypass surgery History of colonoscopy May 2022 negative History of tonsillectomy age 6 History of hand fracture Right 5th finger pin History of femoral angiogram History of amputation Left 4th toe Family History Other Diabetes Denies family history of Dementia Chronic kidney disease (CKD) Anesthesia complication Bleeding disorder Lung disease Cancer Hypertension Stroke Social History Smoking and tobacco/nicotine status: former use of tobacco/nicotine Second hand smoke exposure: No Alcohol intake: current Alcohol intake frequency: 0-2 Drinks per Day Alcohol type: hard liquor Substance/Drug Use: unknown Adopted: No Caregiver/support person: No Lives independently: Yes Household members: spouse Housing: House Marital status: Number of children: 0 service: Yes branch: [employer] Current occupational status: retired Pets and animals: Yes Pets & animals: cat(s) Do you think of yourself as: Straight/Heterosexual Current gender identity: Male Physical Exam 2 Const: COMMON NORMALS: no acute distress, patient oriented x3 and alert HENMT: COMMON NORMALS: normocephalic and atraumatic HEAD & SCALP: n ormocephalic and atraumatic OTHER: Pale conjunctiva and mucous membranes. Eye: COMMON NORMALS: Equal, round and reactive pupils present, EOMs intact bilaterally and no scleral icterus PUPIL: Yes Equal, round and reactive pupils present Resp: COMMON NORMALS: normal respiratory effort and No retractions Cardio: COMMON NORMALS: regular rhythm and No murmurs present (Cardio) R ATE: tachycardic RHYTHM: regular rhythm GI: COMMON NORMALS: Normal to inspection, nondistended, normoactive bowel sounds present, Soft to palpation and non-tender PALPATION: Yes Soft to palpation Neuro: COMMON NORMALS: patient oriented x3 SENSORIUM/ORIENTATION: Yes alert Skin: OTHER: Pale Course 2 Vital Signs: Vital signs: Vital Signs Temperature 98.4 F 06/17/24 21:00 Pulse Rate 101 H 06/17/24 21:00 Respiratory Rate 20 H 06/17/24 21:00 Blood Pressure 116/73 06/17/24 21:00 Pulse Oximetry 94 06/17/24 21:00 Oxygen Delivery Me thod Room Air 06/17/24 18:34 MDM - Recheck/Abnormal Lab/Rx Medical Decision Making In summary, patient is a 63-year-old male known for daily alcohol use seen for anemia. Outpatient testing showed hemoglobin of 4.4. On arrival, he is presently hemodynamically stable with heart rate resting around 100 but stable blood pressure and no chest pain, shortness of breath, or lightheadedness. He was given 2 units of blood here in the emergency department as well as IV Protonix. He denies hematemesis at this time. He denies drinking today. Alcohol level is 0. He does not exhibit signs of alcohol withdrawal presently. I spoke with the hospitalist who recommended transfer to a facility with on-call GI who can intervene should the bleeding get worse. I spoke with Dr. Swain at [facility] who graciously accepts the patient in transfer. He be taken by ground ambulance in stable condition. Lab Data 06/17/24 17:50 06/17/24 17:50 Laboratory Results WBC 4.91 10^3/uL (3.29-11.43) 06/17/24 17:50 RBC 2.52 10^6/uL (3.85-5.65) L 06/17/24 17:50 Hgb 4.40 g/dL (11.27-16.99) L* 06/17/24 17:50 Hct 16.7 % (37-53) L* 06/17/24 17:50 MCV 66.3 fl (82-101) L 06/17/24 17:50 MCH 17.5 pg (27-33) L 06/17/24 17:50 MCHC 26.3 g/dL (30-55) L 06/17/24 17:50 RDW 19.5 % (12.1-15.1) H 06/17/24 17:50 Plt Count 169 10^3/cmm (157-399) 06/17/24 17:50 MPV 9.9 fL (7.4-10.4) 06/17/24 17:50 Neut % (Auto) 77.7 % 06/17/24 17:50 Lymph % (Auto) 7.5 % 06/17/24 17:50 Wayne % (Auto) 13.4 % 06/17/24 17:50 Eos % (Auto) 0.6 % 06/17/24 17:50 Baso % (Auto) 0.2 % 06/17/24 17:50 Neut # (Auto) 3.81 10^3/uL (1.8-7.7) 06/17/24 17:50 Lymph # (Auto) 0.4 10^3/uL (0.8-4.8) L 06/17/24 17:50 Wayne # (Auto) 0.7 10^3/uL (0.2-0.9) 06/17/24 17:50 Eos # (Auto) 0.0 10^3/uL (0.0-0.8) 06/17/24 17:50 Baso # (Auto) 0.0 10^3/uL (0.0-0.1) 06/17/24 17:50 Nucleated RBC % (auto) 1.4 % 06/17/24 17:50 Nucleated RBCs # 0.1 /100WBC 06/17/24 17:50 PT 17.60 SECONDS (12.1-14.9) H 06/17/24 17:50 INR 1.35 (0.8-1.2) H 06/17/24 17:50 APTT 35.4 SECONDS (23.9-36.7) 06/17/24 17:50 Sodium 132 mmol/L (136-145) L 06/17/24 17:50 Potassium 3.6 mmol/L (3.5-5.1) 06/17/24 17:50 Chloride 95 mmol/L (98-107) L 06/17/24 17:50 Carbon Dioxide 24 mmol/L (22-29) 06/17/24 17:50 Anion Gap 16.6 (5-19) 06/17/24 17:50 BUN 13 mg/dL (8-23) 06/17/24 17:50 Creatinine 0.9 mg/dL (0.7-1.2) 06/17/24 17:50 GFR Calculation 85.0 mL/min (90-130) L 06/17/24 17:50 Glucose 120 mg/dL (65-115) H 06/17/24 17:50 Calculated Osmolality 275 mOsm/kg (285-295) L 06/17/24 17:50 Calcium 8.3 mg/dL (8.5-10.5) L 06/17/24 17:50 Total Bilirubin 0.7 mg/dL (0.15-1.2) 06/17/24 17:50 AST 76 U/L (0-40) H 06/17/24 17:50 ALT 86 U/L (0-41) H 06/17/24 17:50 Alkaline Phosphatase 127 U/L (40-130) 06/17/24 17:50 Ammonia 14 umol/L (16-60) L 06/17/24 17:50 Total Protein 6.6 g/dL (6.6-8.7) 06/17/24 17:50 Albumin 3.7 g/dL (3.5-5.2) 06/17/24 17:50 Globulin 2.9 g/dL (1.3-4.6) 06/17/24 17:50 Ethyl Alcohol < 10 mg/dL (0-10) 06/17/24 17:50 Blood Type O Positive 06/17/24 17:50 Rho(D) Type Rh positive 06/17/24 17:50 Antibody Screen Negative 06/17/24 17:50 Crossmatch See Detail 06/17/24 17:50 All radiology interpretation(s) finalized by discharge Discharge Plan Discharge Patient Disposition: Xfer Short-Term Hosp Clinical Impression: Anemia, GI bleed Condition: Stable Prescriptions: No Action magnesium oxide 250 mg magnesium tablet 250 mg PO DAILY thiamine HCl (vitamin B1) [Vitamin B-1] 100 mg tablet 100 mg PO DAILY ascorbate calcium (vitamin C) 500 mg tablet 500 mg PO DAILY cholecalciferol (vitamin D3) 10 mcg (400 unit) capsule 10 mcg PO DAILY krill oil 500 mg capsule 500 mg PO DAILY (DME) supinator See Rx Instructions .Route .MEDSUPPLY Qty: 1 0RF Rx Instructions: As directed ferrous sulfate 325 mg (65 mg iron) tablet 325 mg PO DAILY cilostazol 50 mg tablet 50 mg PO BID Qty: 180 1RF Ozempic 1 mg/dose (4 mg/3 mL) pen injector 1 mg SUBCUT .weekly Qty: 9 1RF Rx Instructions: on Friday atorvastatin 20 mg tablet 20 mg PO DAILY Qty: 90 1RF Jardiance 25 mg tablet 25 mg PO QAM Qty: 90 1RF Repatha Syringe 140 mg/mL syringe 140 mg SUBCUT .every 14 days Qty: 6 0RF ezetimibe [Zetia] 10 mg tablet 10 mg PO DAILY Qty: 90 1RF insulin glargine [Lantus Solostar U-100 Insulin] 100 unit/mL (3 mL) insulin pen 30 - 35 unit SUBCUT DAILY Qty: 15 2RF pantoprazole [Protonix] 40 mg tablet,delayed release (DR/EC) 40 mg PO DAILY Qty: 90 0RF pregabalin [Lyrica] 100 mg capsule 100 mg PO BID Qty: 180 0RF sucralfate 1 gram tablet 1 g PO QID Qty: 360 1RF venlafaxine [Effexor XR] 75 mg capsule,extended release 24hr 75 mg PO QAM Qty: 90 1RF (DME) pen needle, diabetic 33 gauge x 5/32 needle See Rx Instructions .ROUTE .MEDSUPPLY Qty: 300 5RF Rx Instructions: 2 times day Vitamin B-12 50 mcg Tablet 50 mcg PO DAILY salmon oil-omega-3 fatty acids 1,000-210 mg Capsule 1 cap PO DAILY Discharge Orders: Transfer Out of Facility (Order); Ordered 06/17/24 Ordered By: Tommy Lugo Referrals: John Rouse, W[employer]HOUSE DRIVER-C [Primary Care Provider] - Print Language: Emirati Coding Level of Care Code ED Financial Accountant for Chg Krish
[2024-06-17] MEDS: sodium chloride 0.9% 100 mL Bag 50 ML IV (20:32)
[2024-06-18] VITALS (16 sets, daily range): BP systolic 111–124; BP diastolic 69–86; PULSE 97–103; RESP 14–26; O2SAT 81–95
[2024-06-18 01:13] LABS: Bilirubin Urine Negative (Negative); Blood Urine Negative (Negative); Glucose Urine UA 3+ (Normal); Ketones Urine 2+ (Negative); Leukocyte Esterase Urine Negative (Negative); Nitrate Urine Negative (Negative); Protein Urine Negative (Negative); Urine Appearance Clear (CLEAR); Urine Color Yellow (Yellow); pH Urine 6.5 (5-7)
[2024-06-18 01:18] LABS: Add Urine Microscopic? YES; Bacteria Urine None Seen /hpf; Hyaline Casts Urine 0-4 /lpf; RBC Urine 0-2 /hpf (0-2); Squamous Epithelial Cell Urine 0-5 /hpf (0-5); WBC Urine 0-5 /hpf (0-5)
[2024-06-18 01:23] LABS: Specific Gravity, Urine 1.036 (1.005-1.030)
[2024-06-18 03:14] LABS: Hematocrit 25.7 % (37-53)
[2024-06-18 03:28] LABS: INR 1.32 (0.8-1.2)
[2024-06-18 03:35] LABS: Alcohol Level < 10 mg/dL (0-10)
== END 2024-06-18 03:26 | disposition short-term general hospital (02) ==
PROVIDERS: Family Medicine; Emergency Provider Student in an Organized Health Care Education/Training Program; PCP Nurse Practitioner
DX: D64.9 Anemia, unspecified (principal); K92.2 Gastrointestinal hemorrhage, unspecified; Z79.4 Long term (current) use of insulin; E78.2 Mixed hyperlipidemia; Z86.73 Personal history of transient ischemic attack (TIA), and cerebral infarction without residual deficits
CPT/HCPCS: 36430; 80053; 80307; 81001; 82140; 85014; 85018; 85025; 85610; 85730; 86850; 86900; 86920; 96374; 96376; 99285; J2470; P9016

== ENCOUNTER → 2024-07-27 16:24 | Outpatient (BNVA) | payer MEDICARE, SELFPAY | PROVIDERS: PCP Nurse Practitioner; Visit Provider Nurse Practitioner | DX: Z87.19 Personal history of other diseases of the digestive system (principal); E78.2 Mixed hyperlipidemia; E11.65 Type 2 diabetes mellitus with hyperglycemia; Z79.4 Long term (current) use of insulin; E55.9 Vitamin D deficiency, unspecified; Z12.5 Encounter for screening for malignant neoplasm of prostate; D64.9 Anemia, unspecified | CPT/HCPCS: 71046; 80053; 80061; 82306; 82607; 83036; 83540; 84443; 85025; G0103 ==

== ENCOUNTER → 2024-08-09 15:18 | Outpatient (BNVA) | payer MEDICARE, SELFPAY | PROVIDERS: PCP Nurse Practitioner; Visit Provider Nurse Practitioner | DX: R31.9 Hematuria, unspecified (principal) | CPT/HCPCS: 81000 ==

== ENCOUNTER → 2024-09-29 08:50 | Outpatient (BNVA) | payer MEDICARE, SELFPAY | PROVIDERS: PCP Nurse Practitioner; Visit Provider Nurse Practitioner | DX: I73.9 Peripheral vascular disease, unspecified (principal); K70.10 Alcoholic hepatitis without ascites; E11.65 Type 2 diabetes mellitus with hyperglycemia; Z79.4 Long term (current) use of insulin | CPT/HCPCS: 80053; 81596; 83036; 85025; 85610 ==

== ENCOUNTER → 2024-10-04 13:32 | Outpatient (BNVA) | payer MEDICARE, SELFPAY | PROVIDERS: PCP Nurse Practitioner; Referring Provider Psychiatry & Neurology Neurology; Visit Provider Psychiatry & Neurology Neurology | DX: G11.9 Hereditary ataxia, unspecified (principal); G31.9 Degenerative disease of nervous system, unspecified | CPT/HCPCS: 99212 ==

== ENCOUNTER → 2024-12-27 16:45 | Outpatient (BNVA) | payer MEDICARE, SELFPAY | PROVIDERS: PCP Nurse Practitioner; Visit Provider Nurse Practitioner | DX: E11.65 Type 2 diabetes mellitus with hyperglycemia (principal); E78.2 Mixed hyperlipidemia; Z79.4 Long term (current) use of insulin; E55.9 Vitamin D deficiency, unspecified | CPT/HCPCS: 80053; 80061; 81000; 82043; 83036; 85025 ==

== ENCOUNTER → 2025-01-11 17:06 | Outpatient (BNVA) | payer MEDICARE, SELFPAY | PROVIDERS: PCP Nurse Practitioner; Visit Provider Nurse Practitioner | DX: L98.9 Disorder of the skin and subcutaneous tissue, unspecified (principal) | CPT/HCPCS: 88304 ==